=== PATIENT | female | born 1950 | race Caucasian/White ===

== ENCOUNTER 2019-07-22 12:00 | Inpatient (IN) | payer MEDICARE, MEDICAID ==
[~2019-07-22] VITALS: Ht 165.1 cm; Wt 69.6 kg
[~2019-07-22 12:00] MED LIST: ACET325T9 PO; BUSP10TA PO; BUSP5TAB PO; CALC500T13 PO; CARB-174 AU; CARB15DR3 OU; CARB200T PO; CETY454C TP; CITA10TA8 PO; DESM0.2T20 PO; DESM10SP NS; DIVA500T4 PO; DOCU100C28 PO; ERGO500027 PO; EUCA50OI2 TP; FAMO20TA5 PO; FURO-68 PO; KETO120S2 TP; LEVO137T2 PO; LORA0.5T96 PO; LORA10TA68 PO; MAG30ORA2 PO; MAGN2400 PO; METH29OI TP; MINE454O3 TP; NYST1POW2 TP; POTA20TA12 PO; PREN1TAB58 PO; PROM118S9 PO; QUET300T5 PO; QUET50TA5 PO; RISP1TAB43 PO; RISP2TAB33 PO; SERT50TA8 PO; TRAZ-120 PO
--- NOTE | 2019-07-22 12:29 | PHYS DOC ---
Past History Past Medical History: CHF, CVA, Dementia, Depression, Hypertension, Hypothyroid, Seizure, Schizophrenia, Other Additional Past Medical Histor: borderline, MDD Past Surgical History: No Surgical History Smoking: Non-smoker Alcohol Use: None Drug Use: None Adult General Chief Complaint Chief Complaint: MEDICAL CLEARANCE HPI HPI Patient is a 69-year-old female brought in from the assisted care facility where she resides due to change in behavior. She has been screaming, swinging at other residents, exposing her breasts. They have attempted redirection, distraction, one-on-one care, as well as medicines without any significant improvement. History is limited from the patient due to previous CVA as well as unspecified intellectual disability. History was obtained from chart review as well as transportation maintenance operator from the facility where she resides.[] Review of Systems Review of Systems Unable to obtain due to patient's baseline intellectual disability and previous CVA All other systems were reviewed and found to be within normal limits, except as documented in this note. Allergies Allergies Allergies Coded Allergies Type Severity Reaction Last Updated Verified caffeine Allergy Intermediate 04/28/15 Yes clonazepam Allergy Intermediate clonazapam 04/28/15 Yes Physical Exam Physical Exam Constitutional: Well developed, well nourished, no acute distress, non-toxic appearance. [] HENT: Normocephalic, atraumatic, bilateral external ears normal, oropharynx moist, no oral exudates, nose normal. [] Eyes: PERRLA, EOMI, conjunctiva normal, no discharge. [] Neck: Normal range of motion, no tenderness, supple, no stridor. [] Cardiovascular:Heart rate regular rhythm, no murmur [] Lungs & Thorax: Bilateral breath sounds clear to auscultation [] Abdomen: Bowel sounds normal, soft, no tenderness, no masses, no pulsatile masses. [] Skin: Warm, dry, erythematous rash underneath the breasts and in both skin folds of the groin region. No petechiae, no ulcers. [] Back: No tenderness, no CVA tenderness. [] Extremities: No tenderness, no cyanosis, no clubbing, ROM intact, no edema. [] Neurologic: Alert, moves all 4 extremities, right facial weakness. [] Psychologic: Unable to obtain[] Current Patient Data Vital Signs Vital Signs Date Time Temp Pulse Resp B/P (MAP) Pulse Ox O2 Delivery O2 Flow Rate FiO2 07/22/19 12:09 97.8 86 18 95 Room Air EKG EKG Twelve-lead EKG shows a sinus rhythm at 79 bpm, normal axis, QTC [address] elevation. Interpreted by me at 1249[] Radiology/Procedures Radiology/Procedures PROCEDURE: CT HEAD WO CONTRAST CT HEAD WO CONTRAST History: Behavior change, previous CVA Comparison: None. Technique: Noncontrast CT imaging was performed of the head. Exposure: One or more of the following individualized dose reduction techniques were utilized for this examination: 1. Automated exposure control 2. Adjustment of the mA and/or kV according to patient size 3. Use of iterative reconstruction technique. Findings: There is motion degradation. There is a 0.4 cm focus of hypodensity of the left caudate head. There is [id number] generalized supratentorial atrophy, ventricular size proportionate to the sulcal spaces. There is moderate to severe infratentorial atrophy. No acute hyperdense intracranial hemorrhage is identified. There is atherosclerotic calcification of the carotid siphons bilaterally. Visualized paranasal sinuses the mastoid air cells are aerated. Impression: 1. No acute intracranial hemorrhage is identified. There is supratentorial and supratentorial atrophy. There is a focus of low density of the left caudate head likely at least late subacute if not chronic lacunar infarct.[] Course & Med Decision Making Course & Med Decision Making Pertinent Labs and Imaging studies reviewed. (See chart for details) ED course: Patient arrived, was placed in bed, tolerated exam well. She was transported to and from radiology with any complications. After the return of the laboratory and imaging findings, she was determined to be medically stable. She was admitted in improved condition. Medical decision making: Patient with behavioral changes. There is no evidence of an acute mass or bleed on head CT. No evidence of urinary tract infection. No evidence of an acute electrolyte abnormality. There is blood noted in the urine but this was from a catheterized specimen.[] Dragon Disclaimer Dragon Disclaimer This electronic medical record was generated, in whole or in part, using a voice recognition dictation system. Departure Departure: Impression: Primary Impression: Dementia Additional Impression: Medical clearance for psychiatric admission Disposition: ADMITTED INPATIENT Admitting Physician: Other Condition: IMPROVED Referrals: DHIRAJ PATEL DO (PCP) Problem Qualifiers Primary Impression: Dementia Dementia type: unspecified type Dementia behavioral disturbance: with behavioral disturbance Qualified Codes: F03.91 - Unspecified dementia with behavioral disturbance ERIC ACHARYA DO Jul 22, 2019 12:29
--- NOTE | 2019-07-22 12:43 | RAD ---
CT HEAD WO CONTRAST History: Behavior change, previous CVA Comparison: None. Technique: Noncontrast CT imaging was performed of the head. Exposure: One or more of the following individualized dose reduction techniques were utilized for this examination: 1. Automated exposure control 2. Adjustment of the mA and/or kV according to patient size 3. Use of iterative reconstruction technique. Findings: There is motion degradation. There is a 0.4 cm focus of hypodensity of the left caudate head. There is [id number] generalized supratentorial atrophy, ventricular size proportionate to the sulcal spaces. There is moderate to severe infratentorial atrophy. No acute hyperdense intracranial hemorrhage is identified. There is atherosclerotic calcification of the carotid siphons bilaterally. Visualized paranasal sinuses the mastoid air cells are aerated. Impression: 1. No acute intracranial hemorrhage is identified. There is supratentorial and supratentorial atrophy. There is a focus of low density of the left caudate head likely at least late subacute if not chronic lacunar infarct. Electronically signed by: Braeden Villegas MD (07/22/2019 12:40 PM) [id number]
[2019-07-22 12:59] LABS: BILIRUBIN,URINE NEG (NEG); CLARITY,URINE HAZY; COLOR,URINE YELLOW; GLUCOSE,URINE NEG (NEG); NITRITE,URINE POS (NEG); UROBILINOGEN,URINE 0.2 mg/dL (0.2 mg/dL)
[2019-07-22 13:00] LABS: BACTERIA,URINE MANY /HPF (0-FEW); RBC,URINE >40 /HPF (0-2); SQUAMOUS EPITHELIAL CELL,UR FEW /LPF
[2019-07-22 13:04] LABS: BASO % 1 % (0-3); EOS # 0.2 x10^3/uL (0.0-0.7); EOS % 3 % (0-3); HEMATOCRIT 39.5 % (36.0-47.0); LYMPH # 1.6 x10^3/uL (1.0-4.8); LYMPH % 35 % (24-48); MEAN CORPUSCULAR HEMOGLOBIN 30 pg (25-35); MEAN CORPUSCULAR HGB CONC 33 g/dL (31-37); MEAN CORPUSCULAR VOLUME 90 fL (79-100); MONO # 0.7 x10^3/uL (0.0-1.1); MONO % 15 % (0-9); NEUT # 2.1 x10^3uL (1.8-7.7); NEUT % 46 % (31-73); PLATELET COUNT 162 x10^3/uL (140-400); RED BLOOD COUNT 4.42 x10^6/uL (3.50-5.40); RED CELL DISTRIBUTION WIDTH 14.1 % (11.5-14.5); WHITE BLOOD COUNT 4.5 x10^3/uL (4.0-11.0)
[2019-07-22 13:19] LABS: ALBUMIN 3.3 g/dL (3.4-5.0); ALBUMIN/GLOBULIN RATIO 0.7 (1.0-1.7); ALK PHOS 92 U/L (46-116); ALT (SGPT) 11 U/L (14-59); ANION GAP 4 (6-14); AST (SGOT) 16 U/L (15-37); BLOOD UREA NITROGEN 23 mg/dL (7-20); BUN/CREATININE RATIO 29 (6-20); CALCIUM 9.3 mg/dL (8.5-10.1); CARBON DIOXIDE 37 mmol/L (21-32); CHLORIDE 101 mmol/L (98-107); CREATININE 0.8 mg/dL (0.6-1.0); GFR 70.9; GLUCOSE 84 mg/dL (70-99); MAGNESIUM 2.2 mg/dL (1.8-2.4); POTASSIUM 3.9 mmol/L (3.5-5.1); SODIUM 142 mmol/L (136-145); TOTAL BILIRUBIN 0.3 mg/dL (0.2-1.0); TOTAL PROTEIN 8.1 g/dL (6.4-8.2)
[2019-07-22 13:20] LABS: VAL ACID 85 mcg/mL (50-100)
[2019-07-22] MEDS ORDERED: NYST15CR TP (14:01)
[2019-07-22] MEDS ORDERED: FOLI0.8T2 PO (14:01)
[2019-07-22] MEDS ORDERED: POLY17PO5 PO (14:01)
[2019-07-22] MEDS ORDERED: NITR100C62 PO (14:01)
[2019-07-22] MEDS ORDERED: CALC-95 PO (14:01)
[2019-07-22] MEDS ORDERED: IRON1CAP10 PO (14:01)
[2019-07-22] MEDS ORDERED: DIVA125C2 PO (14:01)
[2019-07-22] MEDS ORDERED: BENZ1TAB5 PO (14:01)
[2019-07-22] MEDS ORDERED: ASPI-630 PO (14:01)
[2019-07-22] MEDS ORDERED: MIRA50TA PO (14:01)
[2019-07-22] MEDS ORDERED: GUAI100L12 PO (14:01)
[2019-07-22] MEDS ORDERED: QUET200T4 PO (14:01)
[2019-07-22] MEDS ORDERED: CHOL100016 PO (14:01)
[2019-07-22] MEDS ORDERED: APIX2.5T PO (14:01)
[2019-07-22] MEDS ORDERED: LACT1CAP19 PO (14:01)
[2019-07-22] MEDS ORDERED: LACT10SO26 PO (14:01)
--- NOTE | 2019-07-22 15:00 | NUR ---
Admission Note with Justification for Admission to [facility] Patient admitted to [facility] for protective oversight for emergency stabilization of acute psychiatric crisis. Pt admitted from: Hospital ER Mode of arrival: EMS Accompanied By: EMS Precipitating behaviors that initiated intake and admission: : pt has been screaming, combative towards staff and residents, disrobing and exposing breasts, removing brief in public areas and swinging them around, refusing meds Description of failure of out patient attempts at stabilization in previous setting list behavior and medication trials: redirection, distraction, fluids, snack, 1:1, meds Behaviors and assessment findings upon admission: anxious, restless, confused, disoriented, cooperative with assessment Plan: Admit for protective oversight for adjustment and stabilization of medications, behaviors and mood. Intense treatment regimen including groups, medication adjustments, therapy, consistent regimen for ADL's, self care, and sleep hygiene. Daily monitoring by Inpatient staff, Psychiatry, and Medical Physician.
[2019-07-22] MEDS ORDERED: NYSTATIN TOPICAL POWDER 15GM BOTTLE. TP ONE (15:17)
[2019-07-22] MEDS ORDERED: FAMOTIDINE 20 MG TABLET PO PRN (16:00)
[2019-07-22] MEDS ORDERED: guaiFENesin 300 MG/15 ML LIQUID PO PRN (16:00)
[2019-07-22] MEDS ORDERED: NYSTATIN 100,000 UNIT/GM TOPICAL CREAM 15GM TUBE. TP PRN (16:00)
[2019-07-22] MEDS ORDERED: MAG HYDROX/AL HYDROX/SIMETH 30 ML ORAL.SUSP PO PRN (16:00)
[2019-07-22 16:40] VITALS: BP 115/56
[2019-07-22] MEDS: QUEtiapine 100 MG TABLET. PO SCH (17:17)
[2019-07-22] MEDS: carBAMazepine 200 MG TABLET PO SCH ×2 (17:17→20:44)
--- NOTE | 2019-07-22 20:37 | PDOC ---
Exam Note: Edwin Note: Please also refer to the separate dictated note~for this date of service dictated separately. Discussed the patient with Nursing staff reviewed the chart.~Reviewed interim history and current functioning. Reviewed vital signs,~Labs/ Radiology~and current medications noted below. Continue current treatment with the changes noted in the dictated addendum note Assessment: Vital Signs/I&O: Vital Signs Date Time Temp Pulse Resp B/P (MAP) Pulse Ox O2 Delivery O2 Flow Rate FiO2 07/22/19 16:40 98.1 86 18 115/56 (75) 94 07/22/19 12:09 Room Air Labs: Laboratory Tests Test 07/22/19 12:23 07/22/19 12:48 Urine Collection Type U cath Urine Color Yellow Urine Clarity Hazy Urine pH 7.0 Urine Specific [place] 1.015 Urine Protein Neg (NEG-TRACE) Urine Glucose (UA) Neg mg/dL (NEG) Urine Ketones (Stick) Neg mg/dL (NEG) Urine Blood Large (NEG) Urine Nitrite Pos (NEG) Urine Bilirubin Neg (NEG) Urine Urobilinogen Dipstick 0.2 mg/dL (0.2 mg/dL) Urine Leukocyte Esterase Neg (NEG) Urine RBC >40 /HPF (0-2) Urine WBC 1-4 /HPF (0-4) Urine Squamous Epithelial Cells Few /LPF Urine Transitional Epithelial Cells Occ /LPF Urine Bacteria Many /HPF (0-FEW) White Blood Count 4.5 x10^3/uL (4.0-11.0) Red Blood Count 4.42 x10^6/uL (3.50-5.40) Hemoglobin 13.0 g/dL (12.0-15.5) Hematocrit 39.5 % (36.0-47.0) Mean Corpuscular Volume 90 fL (79-100) Mean Corpuscular Hemoglobin 30 pg (25-35) Mean Corpuscular Hemoglobin Concent 33 g/dL (31-37) Red Cell Distribution Width 14.1 % (11.5-14.5) Platelet Count 162 x10^3/uL (140-400) Neutrophils (%) (Auto) 46 % (31-73) Lymphocytes (%) (Auto) 35 % (24-48) Monocytes (%) (Auto) 15 % (0-9) H Eosinophils (%) (Auto) 3 % (0-3) Basophils (%) (Auto) 1 % (0-3) Neutrophils # (Auto) 2.1 x10^3uL (1.8-7.7) Lymphocytes # (Auto) 1.6 x10^3/uL (1.0-4.8) Monocytes # (Auto) 0.7 x10^3/uL (0.0-1.1) Eosinophils # (Auto) 0.2 x10^3/uL (0.0-0.7) Basophils # (Auto) 0.0 x10^3/uL (0.0-0.2) Prothrombin Time 12.2 SEC (9.4-11.4) H Prothrombin Time INR 1.2 (0.9-1.1) H Activated Partial Thromboplast Time 30 SEC (23-33) Sodium Level 142 mmol/L (136-145) Potassium Level 3.9 mmol/L (3.5-5.1) Chloride Level 101 mmol/L (98-107) Carbon Dioxide Level 37 mmol/L (21-32) H Anion Gap 4 (6-14) L Blood Urea Nitrogen 23 mg/dL (7-20) H Creatinine 0.8 mg/dL (0.6-1.0) Estimated GFR (Cockcroft-Gault) 70.9 BUN/Creatinine Ratio 29 (6-20) H Glucose Level 84 mg/dL (70-99) Calcium Level 9.3 mg/dL (8.5-10.1) Magnesium Level 2.2 mg/dL (1.8-2.4) Total Bilirubin 0.3 mg/dL (0.2-1.0) Aspartate Amino Transferase (AST) 16 U/L (15-37) Alanine Aminotransferase (ALT) 11 U/L (14-59) L Alkaline Phosphatase 92 U/L (46-116) Ammonia 26 mcmol/L (11-34) Total Protein 8.1 g/dL (6.4-8.2) Albumin 3.3 g/dL (3.4-5.0) L Albumin/Globulin Ratio 0.7 (1.0-1.7) L Valproic Acid Level 85 mcg/mL (50-100) Valproic Acid Last Dose Date 07/22/19 Valproic Acid Last Dose Time 0001 Current Medications: Meds: Current Medications Medications (Trade) Dose Ordered Sig/Sukhwinder Route PRN Reason Start Time Stop Time Status Last Admin Dose Admin Carbamazepine (TEGretol) 200 mg QID PO 07/22/19 17:00 07/22/19 17:17 Quetiapine Fumarate (SEROquel) 100 mg DAILYWSUP PO 07/22/19 17:00 07/22/19 17:17 I have reviewed the current psychotropics carefully including drug interactions. Risk benefit ratio favors no change other than as noted in my dictated progress note. Diagnosis: Problems: (1) Anxiety disorder (2) Dementia in Alzheimer's disease with delusions (3) Dementia in Alzheimer's disease with depression (4) Impulse control disorder (5) Intellectual disability (6) Medical clearance for psychiatric admission LOGAN ARANGO MD Jul 22, 2019 20:37
[2019-07-22] MEDS: BENZTROPINE MESYLATE 1 MG TABLET PO SCH (20:43)
[2019-07-22] MEDS: DIVALPROEX 125 MG CAP.SPRINK PO SCH (20:43)
[2019-07-22] MEDS: CALCIUM CARB/VIT D3 500/200 TABLET PO SCH (20:44)
[2019-07-22] MEDS: busPIRone 5 MG TABLET. PO SCH (20:44)
[2019-07-22] MEDS: NYSTATIN TOPICAL POWDER 15GM BOTTLE. TP SCH (20:44)
[2019-07-22] MEDS: APIXABAN 2.5 MG TABLET PO SCH (20:44)
[2019-07-22] MEDS ORDERED: NYSTATIN 100,000 UNIT/GM TOPICAL CREAM 15GM TUBE. TP SCH (21:00)
--- NOTE | 2019-07-22 23:04 | NUR ---
Nursing note: Assumed care of pt in the day room. She was sitting alone with ner hat down over her eyes. She was calm and compliant with meds and assessment. She is alert to name only. No c/o pain, no agitation, hallucinations, or delusions present. She asks for water frequently.
--- NOTE | 2019-07-23 02:17 | EKG ---
[address] [address] Test Date: 2019-07-22 Test Time: 12:41:34 Pat Name: STELLA LAST Department: Room: [address] [place] [address] Gender: F Paint Formulator: : 1950 Requested By: ERIC ACHARYA Order Number: [id number] Reading MD: Matt Fonseca MD Measurements Intervals [place] Rate: 81 P: 41 SC: 186 QRS: 21 QRSD: 84 T: 38 QT: 356 QTc: 419 Interpretive Statements SINUS RHYTHM NON-SPECIFIC ST/T CHANGES Electronically Signed On 09-02-2019 7:45:12 STAFF DEVELOPER by Matt Fonseca MD
[2019-07-23] MEDS: LEVOTHYROXINE 137 MCG TABLET PO SCH (06:29)
[2019-07-23 06:34] VITALS: BP 121/64
[2019-07-23] MEDS: BENZTROPINE MESYLATE 1 MG TABLET PO SCH ×3 (08:34→19:55)
[2019-07-23] MEDS: POLYETHYLENE GLYCOL 3350 17 GM PACKET. PO SCH (08:34)
[2019-07-23] MEDS: ASPIRIN 81 MG TAB.CHEW PO SCH (08:35)
[2019-07-23] MEDS: LACTOBACILLUS RHAMNOSUS GG 1 CAPSULE. PO SCH (08:35)
[2019-07-23] MEDS: busPIRone 5 MG TABLET. PO SCH ×3 (08:35→19:55)
[2019-07-23] MEDS: CALCIUM CARB/VIT D3 500/200 TABLET PO SCH ×3 (08:35→19:56)
[2019-07-23] MEDS: NITROFURANTOIN MONOHYD/M-CRYST 100 MG CAPSULE. PO SCH (08:35)
[2019-07-23] MEDS: POTASSIUM CHLORIDE 10 MEQ TABLET.ER. PO SCH (08:35)
[2019-07-23] MEDS: carBAMazepine 200 MG TABLET PO SCH ×4 (08:35→19:56)
[2019-07-23] MEDS: APIXABAN 2.5 MG TABLET PO SCH ×2 (08:35→19:56)
[2019-07-23] MEDS: DOCUSATE SODIUM 100 MG CAPSULE PO SCH (08:36)
[2019-07-23] MEDS: FOLIC ACID 1 MG TABLET PO SCH (08:36)
[2019-07-23] MEDS: FUROSEMIDE 20 MG TABLET PO SCH (08:36)
[2019-07-23] MEDS: CETIRIZINE HCL 10 MG TABLET PO SCH (08:36)
[2019-07-23] MEDS: MIRABEGRON 25 MG TAB.ER.24H PO SCH (08:37)
[2019-07-23] MEDS: NYSTATIN TOPICAL POWDER 15GM BOTTLE. TP SCH ×2 (08:37→19:56)
[2019-07-23] MEDS: CHOLECALCIFEROL (VITAMIN D3) 1,000 UNIT TABLET PO SCH (08:37)
[2019-07-23] MEDS: DIVALPROEX 125 MG CAP.SPRINK PO SCH ×3 (08:37→19:56)
[2019-07-23] MEDS: LACTULOSE 20 GM/30 ML SOLUTION. PO SCH (08:37)
[2019-07-23] MEDS: QUEtiapine 100 MG TABLET. PO SCH ×3 (08:37→17:13)
[2019-07-23] MEDS: [UNRECOGNIZED DRUG - OTHER] PO SCH (08:43)
[2019-07-23] MEDS: VIT B12 PO SCH (08:43)
[2019-07-23] MEDS: IRON PS CMPLX PO SCH (08:43)
[2019-07-23] MEDS ORDERED: NON FORMULARY ITEM (Mirabegron (Myrbetriq) 50 MG) PO SCH (09:00)
[2019-07-23] MEDS ORDERED: SERTRALINE 50 MG TABLET. PO SCH (09:00)
--- NOTE | 2019-07-23 11:15 | NUR ---
PSYCHOSOCIAL ASSESSMENT ADMISSION DATE: 07/22/19 CONTACT INFORMATION: DPOA/Guardian Contact Name: Clarissa Tapia, Legal Guardian Contact Address: [facility] Contact Phone #: [phone] ETHNIC ORIGIN: REASONS FOR ADMISSION: Agitated, Combative, and Poor impulse control ADDITIONAL ADMISSION COMMENTS: Per pt. intake, pt. was screaming, swinging at staff, disrobing, exposing breasts, removing brief in public areas and swinging them around, combative towards peers, and declining meds. REASON FOR ADMISSION IN PATIENT/FAMILY'S OWN WORDS: Per Hailey, [place] Public Guard Entrance Registrar, pt. was "refusing meds", "screaming", "disrobing", and "taking her clothes off". PATIENT/FAMILY EXPECTATIONS FOR ADMISSION: Hailey reports, "Earlier in the year she had been doing fairly well." Per pt. social work professor, Tammy, "I'm hoping we can get the behaviors under control." LIVING SITUATION: Assisted Care Contact Name: [facility] Contact Address: [place], [place] Contact Phone #: [phone] Contact Fax #: [phone] FAMILY RELATIONS: Marital Status: Single # of Marriages: 0 # of Children: 0 [facility] Family Support: Pt. has no known family. SIGNIFICANT PSYCHIATRIC/MEDICAL HISTORY: Psychiatric/Treatment History: Per pt. intake, pt. has Schizoaffective Disorder, MDD, Borderline Personality Disorder unspecified, Dementia, and an intellectual disability. Hailey was unaware of any pervious psychiatric treatment history. Pt. Gertrudis STALLWORTH, believes pt. had psychiatric treatment "prior to being here" but did not know where. Pertinent Family History: Unknown HISTORICAL DATA: Childhood Environment: Pt. had two brothers and one sister who have all . According to Hailey, pt. lived with her sister prior to living in the nursing facility. Psychological Abuse: None Known Drug Abuse History last 12 months: No PERSONAL HISTORY: Vocational history: None Known service: N Religion background: Per pt. social work professor, "no". Sexual orientation: Pt. social work professor believes pt. is heterosexual. Educational Level: Per pt. social work professor, "I doubt it" when asked if pt. graduated from high school. Past/Present Interests/Hobbies: Pt. social work shared pt. enjoys "drinking coffee" and "hanging out with staff." Pt. also "loves to joke and tease" and giving "hugs." Financial support/resources: Social Security Monthly income: $879 Person handling finances: Clarissa Tapia Do you have a history of legal problems: N Cultural considerations: None SOCIAL RELATIONSHIPS-CURRENT/PAST: Psychiatrist: None PCP: Dr. Perez Counselor/Therapist: Jessica Sujey Brigette Psych - Counseling [employer]: None Support Group: None Epilepsy Physician/Hog Stomach Preparer: Gertrudis Other relationships: None STRENGTHS & WEAKNESSES: Patient's strengths: Stable living arrangement and Approachable Patient's weaknesses: No family support, Impulsive, Poor social skills, and Physically Aggressive PRELIMINARY PLAN OF TREATMENT: Preliminary plan: Medication Stabilization, Monitor Med Effects, Control abnormal behavior, Decrease Outbursts, and Decrease Aggression DISCHARGE PLANNING: Discharge planning/disposition: Current Living Arrangement ADDITIONAL INFORMATION: Pt. was unable to supply information for this assessment. Clarissa Tapia, pt. legal guardian and Public Guard Entrance Registrar, was contacted for psychosocial information. Hailey, [place] Public Guard Entrance Registrar, was able to supply some of the information requested. Hailey shared pt. has been in a nursing facility since 2013 from [facility] to [facility] and back to [facility]. Pt. was in [facility] in May of last year for a UTI and MRI for a "possible stroke." Pt. social work professor, Gertrudis, was also contacted for information. She shared pt. behaviors have been a "slow progression" over the past "two months".
--- NOTE | 2019-07-23 12:01 | HP ---
ADMIT DATE: 07/22/2019 This late entry 07/22 covers elements not covered in my initial note. I met with the patient evening of 07/22. Previously discussed with Lavonne Hansen, marketing production coordinator and nursing staff. IDENTIFYING DATA: The patient is a 69-year-old female referred to us from [facility] in [place], [place] by her primary care physician, Dr. Aponte, on account of increasing agitation, screaming, being combative towards staff and residents, disrobing and exposing breasts. This is within the context of her diagnosis of schizoaffective disorder, bipolar type and intellectual disability. She was removing her brief in public places, swinging it around, combative towards peers had to be on one-on-one status, nonredirectable with redirection, distraction and changes in her medications with a psychiatrist through the [facility]. She had failed outpatient psychiatric interventions resulting in this referral. CHIEF COMPLAINT: "No, I don't do that." The patient is quite disorganized, confused with rapid speech, paranoid, psychotic. Intellectual disability further compromises her presentation. HISTORY OF PRESENT ILLNESS: The patient has a history of schizoaffective disorder, bipolar type. She has been residing at the above facility for some time, but recently having an acute exacerbation of her schizoaffective disorder, bipolar type. The patient has had sleep and appetite changes, marked psychotic symptoms, agitation, aggression, disruptive behaviors as noted above. No active suicidal or homicidal ideation. PAST PSYCHIATRIC HISTORY: As above. PAST MEDICAL HISTORY: Intellectual disability heart failure, metabolic encephalopathy by history, GERD, hypothyroidism, osteoporosis, status post CVA, seizure disorder, dysphagia impulse control disorder, chronic constipation, history of C. diff colitis. DIET: Pureed, nectar thick. ACCU-CHEKS: Not applicable. CODE STATUS: Full code. ALLERGIES: KLONOPIN, CAFFEINE, CHOCOLATE. AMBULATES: Wheelchair x 1 assist with transfers. CURRENT PSYCHOTROPICS: BuSpar 7.5 mg t.i.d., Tegretol 200 mg q.i.d., Depakote 500 t.i.d., Seroquel 100 mg a.m. and 200 b.i.d., Zoloft 50 mg a day. FAMILY HISTORY: Noncontributory. SOCIAL HISTORY: No alcohol, drug abuse, physical, sexual or elder abuse history is noted. She is not known to be a perpetrator. REACTION TO HOSPITALIZATION: The patient oblivious of this. ASSETS: Supportive living at the facility. MENTAL STATUS EXAMINATION: The patient was seen individually evening of 07/22. The patient is oriented to herself, seated in a wheelchair, difficult to understand her speech. Insight, judgment, recent and remote memory, attention, concentration, fund of knowledge poor, consistent with her diagnosis. She appears quite psychotic, paranoid, labile in her mood. LABORATORY DATA: Reviewed. IMPRESSION: Schizoaffective disorder, bipolar type, mixed with psychotic features; intellectual disability; major neurocognitive disorder, Alzheimer, vascular with delusion, behavioral disturbance; anxiety disorder, unspecified; impulse control disorder, unspecified. Rest as above. PLAN: Admit to Geropsychiatry Unit at [facility]. I will see the patient daily individually from a psychiatric standpoint. Medical followup with Dr. Mcbride. Continue current psychotropics. Check lab levels for the Tegretol and Depakote. Adjust to reach therapeutic level. Consider changing Seroquel to an alternate antipsychotic. We will make all these decisions post baseline assessment. LOGAN ARANGO MD DR: DAIN/lois JOB#: [id number] / [id number]
[2019-07-23 13:56] LABS: CARBAM 10.9 mcg/mL (4.0-12.0)
[2019-07-23 13:57] LABS: THYROID STIM HORMONE (TSH) 0.161 uIU/mL (0.358-3.740)
--- NOTE | 2019-07-23 14:10 | NUR ---
Pt has been cooperative and compliant with crushed medications. Pt occasionally hollers out. A/O to self.
[2019-07-23 15:58] VITALS: BP 113/73
--- NOTE | 2019-07-23 18:05 | RAD ---
CHEST AP ONLY Clinical Indication: Productive cough Comparison: 04/26/2015 Portable Chest X-ray Exam. Findings: Upright frontal view of the chest was obtained. The cardiomediastinal silhouette is normal. Lungs are clear. Left basilar calcified granuloma is present. There is no pneumothorax. No pleural effusion is appreciated. No acute bone abnormality. IMPRESSION: No acute cardiopulmonary process. Electronically signed by: Hosea Garrison MD (07/23/2019 6:03 PM) [facility]
--- NOTE | 2019-07-23 18:27 | NUR ---
Pt has had a wet, productive cough throughout the day. CXR ordered. Will continue to monitor.
--- NOTE | 2019-07-23 18:46 | CONS ---
DATE OF CONSULTATION: REASON FOR CONSULTATION: Medical management. HISTORY OF PRESENT ILLNESS: The patient is a 69-year-old female patient, a resident at [facility] [place] [facility], who was admitted on account of being combative towards staff and residents, screaming, disrobing and exposing breasts and moving free in the public areas and swinging them around, refusing medication, all this in a background of schizoaffective disorder, major depressive disorder and personality disorder. PAST MEDICAL HISTORY: Significant for hypothyroidism, gastroesophageal reflux disease, cerebrovascular accident, convulsion, dysphagia, chronic constipation as well as C. diff colitis together with metabolic encephalopathy and heart failure. PAST PSYCHIATRIC HISTORY: Significant for schizoaffective disorder, major depressive disorder, borderline personality, unspecified intellectual disability and dementia. PAST SURGICAL HISTORY: Unremarkable. ALLERGIES: She is allergic to KLONOPIN, CAFFEINE AND CHOCOLATE. FAMILY HISTORY: Noncontributory. SOCIAL HISTORY: She is currently a resident at [facility]. She does not smoke, drink alcohol, or use any recreational drugs. MEDICATIONS: She is currently on following medications: She is on loratadine 10 mg once a day. She is on nitrofurantoin for Macrobid 100 mg once a day, Ferrex 150 mg once a day, apixaban 2.5 mg twice a day, aspirin 81 mg once a day, Tylenol 650 mg every 4 hours, carbamazepine 200 mg 4 times a day, divalproex sodium 500 mg 3 times a day, sertraline 50 mg daily, quetiapine fumarate for Seroquel 100 mg once a day, Seroquel 200 mg twice a day, buspirone 7.5 mg 3 times a day, benztropine mesylate 1 mg 3 times a day, lactulose 22.5 mL daily, calcium carbonate with vitamin D3 1 tablet p.o. t.i.d., potassium chloride 20 mEq once a day, furosemide 40 mg once a day, guaifenesin 10 mL p.o. every 6 hours as needed, Mylanta 30 mL after meals, Colace 100 mg once a day, MiraLax 17 grams daily, famotidine 20 mg daily, lactobacillus rhamnosus 1 capsule p.o. daily, levothyroxine 137 mcg once a day, ketoconazole shampoo 3 times per week, nystatin cream apply topically twice a day, Myrbetriq 50 mg once a day, folic acid 0.8 mg once a day, vitamin D 1000 International Unit once a day, ergocalciferol vitamin D2 50,000 International Unit once a week. REVIEW OF SYSTEMS: Unobtainable. The patient was very lethargic when I saw her, difficult to understand. PHYSICAL EXAMINATION: GENERAL: When I examined her, she was sitting comfortably in her wheelchair, in no apparent respiratory distress, pale. No jaundice, cyanosis or thyromegaly. No jugular venous distention. No limb edema. VITAL SIGNS: Her heart rate was 78, blood pressure 121/64, temperature was 97.6, respiratory rate 20, and oxygen saturation was 93%. HEAD, EYES, EARS, NOSE AND THROAT: Normocephalic, atraumatic. NECK: Supple. HEART: Showed normal first and second heart sounds. No gallop or murmur. CHEST: Clear to auscultation. No crepitation or rhonchi. ABDOMEN: Distended, soft, nontender. NEUROLOGIC: She was somewhat lethargic, but arousable. She is very dysarthric and difficult to understand. However, all her cranial nerves seem to be grossly intact. She moves upper extremities to much lesser extent than lower extremities. She is mostly bedbound, chair bound. LABORATORY DATA: Showed a white cell count of 4500, hemoglobin 13, hematocrit 39, MCV 90 and platelet count 162,000. Her chemistry showed a serum sodium 142, potassium 3.9, chloride 101, bicarbonate 37, anion gap of 4, BUN 23, creatinine 0.8, estimated GFR was 71 mL per minute. Her glucose was 84, calcium 9.3, magnesium was 2.2. Her serum iron was 92, TIBC was 347. Iron saturation was 27%. Total bilirubin, AST, ALT, alkaline phosphatase were normal. Her ammonia was only 26. Total protein was 8.1, albumin 3.3. Serum triglycerides were 75, total cholesterol was 200, LDL was 124, VLDL was 15, HDL was 61 and the ratio was 3. Her TSH was 0.161 which is almost undetectable. Her prothrombin time, INR and aPTT were normal. Urinalysis showed the urine was yellow, hazy with a pH of 7, specific gravity of 1.015. The urine was negative for protein, glucose, ketones. There was large amount of blood, positive for nitrites. The urine was negative for leukocyte esterase. There was more than 40 wbc's, 1-4 wbc's, very few bacteria. Her toxic screen showed that her valproic acid was 85 mcg/mL, which is well within therapeutic range and carbamazepine was 10.9 mcg/mL, which is well within therapeutic range of 4-12. IMPRESSION: In summary, this is a 69-year-old female patient, who was a resident at [facility] [place] [facility] and was admitted on account of being combative towards staff and resident, screaming, disrobing, exposing breasts and moving free in the public areas and swinging them around, refusing medication, all this in a background of schizoaffective disorder, major depressive disorder and personality disorder. Medically, the patient has numerous medical problems including heart failure, metabolic encephalopathy, gastroesophageal reflux disease, hypothyroidism, osteoporosis, seizure disorder, dysphagia, constipation together with history of Clostridium difficile colitis. She seemed to be generally stable medically, except her TSH is almost undetectable. My plan is to check her T3, T4, free T4, and if they are high, we will probably have to cut down her levothyroxine. Thank you, Dr. Cameron for allowing me to participate in the care of this patient. FAIZA PACHECO MD DR: BRIGIDA/lois JOB#: [id number] / [id number]
[2019-07-23 19:07] LABS: THYROXINE 5.2 ug/dL (4.5-12.0)
--- NOTE | 2019-07-23 20:51 | PDOC ---
Exam Note: Edwin Note: Please also refer to the separate dictated note~for this date of service dictated separately.~Patient seen individually. Discussed the patient with Nursing staff reviewed the chart.~Reviewed interim history and current functioning. Reviewed vital signs,~Labs/ Radiology~and current medications noted below. Continue current treatment with the changes noted in the dictated addendum note Assessment: Vital Signs/I&O: Vital Signs Date Time Temp Pulse Resp B/P (MAP) Pulse Ox O2 Delivery O2 Flow Rate FiO2 07/23/19 15:58 97.2 80 16 113/73 (86) 98 07/22/19 12:09 Room Air I & O 07/22/19 07/22/19 07/23/19 15:00 23:00 07:00 Intake Total 480 ml 200 ml Balance 480 ml 200 ml Current Medications: Meds: Current Medications Medications (Trade) Dose Ordered Sig/Sukhwinder Route PRN Reason Start Time Stop Time Status Last Admin Dose Admin Apixaban (Eliquis) 2.5 mg BID PO 07/22/19 21:00 07/23/19 19:56 Aspirin (Children'S Aspirin) 81 mg DAILY PO 07/23/19 09:00 07/23/19 08:35 Calcium/Vitamin D (Oscal D 500mg/ 200uts) 1 tab TID PO 07/22/19 21:00 07/23/19 19:56 Docusate Sodium (Colace) 200 mg DAILY PO 07/23/19 09:00 07/23/19 08:36 Furosemide (Lasix) 30 mg DAILY PO 07/23/19 09:00 07/23/19 08:36 Lactobacillus Rhamnosus (Culturelle) 1 cap DAILY PO 07/23/19 09:00 07/23/19 08:35 Levothyroxine Sodium (Synthroid) 137 mcg DAILY06 PO 07/23/19 06:00 07/23/19 06:29 Nitrofurantoin Macrocrystals (Macrobid) 100 mg DAILY PO 07/23/19 09:00 07/23/19 08:35 Polyethylene Glycol (miraLAX) 17 gm DAILY PO 07/23/19 09:00 07/23/19 08:34 Potassium Chloride (Klor-Con) 10 meq DAILY PO 07/23/19 09:00 07/23/19 08:35 Vitamin D (Vitamin D3) 1,000 unit DAILY PO 07/23/19 09:00 07/23/19 08:37 Folic Acid (Folic Acid) 1 mg DAILY PO 07/23/19 09:00 07/23/19 08:36 Lactulose (Lactulose) 15 gm DAILY PO 07/23/19 09:00 07/23/19 08:37 Cetirizine HCl (ZyrTEC) 10 mg DAILY PO 07/23/19 09:00 07/23/19 08:36 Benztropine Mesylate (Cogentin) 1 mg TID PO 07/22/19 21:00 07/23/19 19:55 Buspirone HCl (Buspar) 7.5 mg TID PO 07/22/19 21:00 07/23/19 19:55 Divalproex Sodium (Depakote Sprinkles) 500 mg TID PO 07/22/19 21:00 07/23/19 19:56 Sertraline HCl (Zoloft) 50 mg DAILY PO 07/23/19 09:00 07/23/19 17:04 DC 07/23/19 08:35 Quetiapine Fumarate (SEROquel) 200 mg BID@0800,1200 PO 07/23/19 08:00 07/23/19 13:49 Mirabegron (Myrbetriq) 50 mg DAILY PO 07/23/19 09:00 07/23/19 08:37 Nystatin (Nystop) 1 tho BID TP 07/22/19 21:00 07/23/19 19:56 I have reviewed the current psychotropics carefully including drug interactions. Risk benefit ratio favors no change other than as noted in my dictated progress note. Diagnosis: Problems: (1) Anxiety disorder (2) Dementia in Alzheimer's disease with delusions (3) Dementia in Alzheimer's disease with depression (4) Impulse control disorder (5) Intellectual disability (6) Dementia, vascular, with delusions (7) Dementia, vascular, with depression (8) Major neurocognitive disorder, due to vascular disease, with behavioral disturbance, mild (9) Schizoaffective disorder, bipolar type LOGAN ARANGO MD Jul 23, 2019 20:51
[2019-07-23 23:07] LABS: HEMOGLOBIN A1C 5.1 % (4.8-5.6)
[2019-07-24] MEDS ORDERED: KETOCONAZOLE 2% SHAMPOO 120ML BOTTLE. TP SCH
[2019-07-24 05:13] VITALS: BP 116/65
[2019-07-24] MEDS: LEVOTHYROXINE 137 MCG TABLET PO SCH (05:37)
[2019-07-24] MEDS: POLYETHYLENE GLYCOL 3350 17 GM PACKET. PO SCH (08:43)
[2019-07-24] MEDS: BENZTROPINE MESYLATE 1 MG TABLET PO SCH ×3 (08:43→20:31)
[2019-07-24] MEDS: NYSTATIN TOPICAL POWDER 15GM BOTTLE. TP SCH ×2 (08:43→20:31)
[2019-07-24] MEDS: LACTULOSE 20 GM/30 ML SOLUTION. PO SCH (08:43)
[2019-07-24] MEDS: MIRABEGRON 25 MG TAB.ER.24H PO SCH (08:44)
[2019-07-24] MEDS: FUROSEMIDE 20 MG TABLET PO SCH (08:44)
[2019-07-24] MEDS: DIVALPROEX 125 MG CAP.SPRINK PO SCH ×3 (08:44→20:31)
[2019-07-24] MEDS: busPIRone 5 MG TABLET. PO SCH ×3 (08:44→20:31)
[2019-07-24] MEDS: QUEtiapine 100 MG TABLET. PO SCH ×3 (08:44→17:12)
[2019-07-24] MEDS: carBAMazepine 200 MG TABLET PO SCH ×4 (08:44→20:31)
[2019-07-24] MEDS: APIXABAN 2.5 MG TABLET PO SCH ×2 (08:45→20:31)
[2019-07-24] MEDS: LACTOBACILLUS RHAMNOSUS GG 1 CAPSULE. PO SCH (08:45)
[2019-07-24] MEDS: ASPIRIN 81 MG TAB.CHEW PO SCH (08:45)
[2019-07-24] MEDS: POTASSIUM CHLORIDE 10 MEQ TABLET.ER. PO SCH (08:45)
[2019-07-24] MEDS: FOLIC ACID 1 MG TABLET PO SCH (08:45)
[2019-07-24] MEDS: NITROFURANTOIN MONOHYD/M-CRYST 100 MG CAPSULE. PO SCH (08:45)
[2019-07-24] MEDS: CHOLECALCIFEROL (VITAMIN D3) 1,000 UNIT TABLET PO SCH (08:45)
[2019-07-24] MEDS: DOCUSATE SODIUM 100 MG CAPSULE PO SCH (08:45)
[2019-07-24] MEDS: CETIRIZINE HCL 10 MG TABLET PO SCH (08:45)
[2019-07-24] MEDS: CALCIUM CARB/VIT D3 500/200 TABLET PO SCH ×3 (08:45→20:31)
[2019-07-24] MEDS: VIT B12 PO SCH (08:56)
[2019-07-24] MEDS: IRON PS CMPLX PO SCH (08:56)
[2019-07-24] MEDS: [UNRECOGNIZED DRUG - OTHER] PO SCH (08:56)
--- NOTE | 2019-07-24 09:40 | NUR ---
Nursing Note Assumed care of pt in the dining room. Patient was calm and compliant with medications and assessment. Patient is alert to name only. No c/o pain, no agitation, hallucinations, or delusions present.
[2019-07-24 15:55] VITALS: BP 104/51
--- NOTE | 2019-07-24 20:40 | PDOC ---
Exam Note: Edwin Note: Please also refer to the separate dictated note~for this date of service dictated separately.~Patient seen individually. Discussed the patient with Nursing staff reviewed the chart.~Reviewed interim history and current functioning. Reviewed vital signs,~Labs/ Radiology~and current medications noted below. Continue current treatment with the changes noted in the dictated addendum note Assessment: Vital Signs/I&O: Vital Signs Date Time Temp Pulse Resp B/P (MAP) Pulse Ox O2 Delivery O2 Flow Rate FiO2 07/24/19 15:55 97.9 80 18 104/51 (68) 93 07/24/19 05:13 Room Air I & O 07/23/19 07/23/19 07/24/19 15:00 23:00 07:00 Intake Total 600 ml 840 ml Balance 600 ml 840 ml Current Medications: I have reviewed the current psychotropics carefully including drug interactions. Risk benefit ratio favors no change other than as noted in my dictated progress note. Diagnosis: Problems: (1) Schizoaffective disorder, bipolar type (2) Dementia, vascular, with depression (3) Dementia, vascular, with delusions (4) Major neurocognitive disorder, due to vascular disease, with behavioral disturbance, mild (5) Anxiety disorder (6) Dementia in Alzheimer's disease with delusions (7) Dementia in Alzheimer's disease with depression (8) Impulse control disorder (9) Intellectual disability LOGAN ARANGO MD Jul 24, 2019 20:40
--- NOTE | 2019-07-24 22:32 | NUR ---
Nursing note: Assumed care of pt in the day room. She was dozing in her chair but was compliant and pleasant. No agitation noted, no behaviors. Med compliant in food.
[2019-07-25] MEDS: LEVOTHYROXINE 137 MCG TABLET PO SCH (05:36)
[2019-07-25 06:27] VITALS: BP 105/64
[2019-07-25] MEDS: POLYETHYLENE GLYCOL 3350 17 GM PACKET. PO SCH (08:49)
[2019-07-25] MEDS: LACTULOSE 20 GM/30 ML SOLUTION. PO SCH (08:50)
[2019-07-25] MEDS: MIRABEGRON 25 MG TAB.ER.24H PO SCH (08:50)
[2019-07-25] MEDS: QUEtiapine 100 MG TABLET. PO SCH ×3 (08:52→17:42)
[2019-07-25] MEDS: busPIRone 5 MG TABLET. PO SCH ×3 (08:53→20:16)
[2019-07-25] MEDS: LACTOBACILLUS RHAMNOSUS GG 1 CAPSULE. PO SCH (08:55)
[2019-07-25] MEDS: ASPIRIN 81 MG TAB.CHEW PO SCH (08:55)
[2019-07-25] MEDS: APIXABAN 2.5 MG TABLET PO SCH ×2 (08:55→20:16)
[2019-07-25] MEDS: BENZTROPINE MESYLATE 1 MG TABLET PO SCH ×3 (08:55→20:16)
[2019-07-25] MEDS: POTASSIUM CHLORIDE 10 MEQ TABLET.ER. PO SCH (08:56)
[2019-07-25] MEDS: FUROSEMIDE 20 MG TABLET PO SCH (08:56)
[2019-07-25] MEDS: NITROFURANTOIN MONOHYD/M-CRYST 100 MG CAPSULE. PO SCH (08:57)
[2019-07-25] MEDS: DIVALPROEX 125 MG CAP.SPRINK PO SCH ×3 (08:57→20:17)
[2019-07-25] MEDS: carBAMazepine 200 MG TABLET PO SCH ×4 (08:57→20:15)
[2019-07-25] MEDS: FOLIC ACID 1 MG TABLET PO SCH (08:57)
[2019-07-25] MEDS: DOCUSATE SODIUM 100 MG CAPSULE PO SCH (08:57)
[2019-07-25] MEDS: CHOLECALCIFEROL (VITAMIN D3) 1,000 UNIT TABLET PO SCH (08:57)
[2019-07-25] MEDS: CETIRIZINE HCL 10 MG TABLET PO SCH (08:58)
[2019-07-25] MEDS: CALCIUM CARB/VIT D3 500/200 TABLET PO SCH ×3 (08:58→20:16)
[2019-07-25] MEDS: VIT B12 PO SCH (09:00)
[2019-07-25] MEDS: IRON PS CMPLX PO SCH (09:00)
[2019-07-25] MEDS: [UNRECOGNIZED DRUG - OTHER] PO SCH (09:00)
[2019-07-25] MEDS: NYSTATIN TOPICAL POWDER 15GM BOTTLE. TP SCH ×2 (09:00→20:15)
--- NOTE | 2019-07-25 11:44 | NUR ---
Nystatin powder was applied in shower, unable to scan at that time. The iron, unverified medication was not available on the unit. Pt. was A & O after breakfast, then retired to bed for a nap.
[2019-07-25] MEDS: ACETAMINOPHEN 325 MG TABLET PO PRN (14:47)
--- NOTE | 2019-07-25 15:31 | PN ---
DATE: 07/23/2019 PSYCHIATRIC PROGRESS NOTE This late entry 07/23/2019 covers elements not covered in my initial note. SUBJECTIVE: I met with the patient evening of 07/23/2019. Per DOMINIK Tello, the patient slept 6 hours previous night. She takes her medications crushed, alert, oriented to herself only. She has been somewhat drowsy, hollering out at times, but not derogatory, mostly "hey honey." REVIEW OF SYSTEMS: Ambulation impaired with wheelchair. No CV, , pulmonary, eye system symptoms on review. MENTAL STATUS EXAM: Oriented to herself. Insight, judgment, recent and remote memory, attention, concentration, fund of knowledge poor, consistent with her diagnoses. IMPRESSION: Schizoaffective disorder, bipolar type, mixed with psychotic features; major neurocognitive disorder, intellectual disability, borderline personality disorder. Urine C and S is awaited. CT head is noncontributory. Given some of her manic symptoms, we will stop the Zoloft. Continue Depakote and Tegretol, levels are therapeutic at 85 and 10.9 respectively. Maintain Seroquel. Adjust further as clinically indicated. MAN Og ARANGO MD DR: DAIN/lois JOB#: [id number] / [id number]
--- NOTE | 2019-07-25 16:05 | NUR ---
ACTIVITY THERAPY ASSESSMENT Completed based on observation, notes, and interview. Pt. was unable to answer assessment questions and struggled to communicate needs. At times, RESIN REMOVER believes Pt. would nod her head to answer "yes;" however, it was unclear if that was really what Pt. was trying to do. While Pt. was restless and readjusting often in her chair, RESIN REMOVER believes she heard Pt. say "too big" as she was tugging at her shirt and "pain" when motioning to her back. Pt. continued to tug at her shirt, pulling it up to expose her stomach and breast at one point. She made brief eye contact as her head constantly moved around. Pt. followed verbal prompts from another staff who walked by, gave Pt. hand gis physical scientist and cued her to rub her hands together. Per social workers notes, Pt. enjoys "drinking coffee, hanging out with staff, joke and tease, give hugs." Pt. has not participated in any groups since admission. Initial goal aimed to increase stimulation and attention span: Pt. will participate in at least five individual Activity Therapy sessions before discharge.
[2019-07-25 16:06] VITALS: BP 120/76
--- NOTE | 2019-07-25 19:27 | NUR ---
Has been compliant with all medications, awake and wheeling self around unit most of the day in her w/c. Showered in a.m. and eats meals well.
--- NOTE | 2019-07-25 20:30 | PDOC ---
Exam Note: Edwin Note: Please also refer to the separate dictated note~for this date of service dictated separately.~Patient seen individually. Discussed the patient with Nursing staff reviewed the chart.~Reviewed interim history and current functioning. Reviewed vital signs,~Labs/ Radiology~and current medications noted below. Continue current treatment with the changes noted in the dictated addendum note Assessment: Vital Signs/I&O: Vital Signs Date Time Temp Pulse Resp B/P (MAP) Pulse Ox O2 Delivery O2 Flow Rate FiO2 07/25/19 16:06 97.6 81 18 120/76 (91) 96 07/24/19 05:13 Room Air I & O 07/24/19 07/24/19 07/25/19 14:59 22:59 06:59 Intake Total 480 ml 420 ml Balance 480 ml 420 ml Current Medications: I have reviewed the current psychotropics carefully including drug interactions. Risk benefit ratio favors no change other than as noted in my dictated progress note. Diagnosis: Problems: (1) Schizoaffective disorder, bipolar type (2) Dementia, vascular, with depression (3) Dementia, vascular, with delusions (4) Major neurocognitive disorder, due to vascular disease, with behavioral disturbance, mild (5) Anxiety disorder (6) Dementia in Alzheimer's disease with delusions (7) Dementia in Alzheimer's disease with depression (8) Impulse control disorder (9) Intellectual disability LOGAN ARANGO MD Jul 25, 2019 20:30
--- NOTE | 2019-07-25 23:39 | PN ---
DATE: 07/24/2019 PSYCHIATRIC PROGRESS NOTE This late entry of 07/24/2019 covers elements not covered in my initial note. SUBJECTIVE: I met with the patient in the evening. The patient slept 6 hours previous night. The patient remains confused, was touching the briefs and pants and believing that was her baby. She is compliant with her medication, propels herself in the wheelchair on the unit. REVIEW OF SYSTEMS: No CV, , PULMONARY, EYE, ENT system symptoms on review. Gait unsteady, in wheelchair. Reliability poor. MENTAL STATUS EXAM: Oriented to herself. Insight, judgment, recent and remote memory, attention, concentration, fund of knowledge poor, consistent with her diagnosis mentioned in my initial note. PLAN: No change from initial note. The patient presumably has a UTI. We will defer to Dr. Mcbride. MAN Og ARANGO MD DR: DAIN/lois JOB#: [id number] / [id number]
--- NOTE | 2019-07-25 23:40 | NUR ---
Patient up in wheelchair ambulating in day room. Compliant with medications crushed in pudding accompanied by nectar thick water. Patient compliant with medications, cooperative with toileting and bed time cares. Patient has yeasty reddened area under left breast. Nystatin powder applied. UA resulted >100,000 Normal Violeta, no treatment necessary.
[2019-07-26] MEDS: LEVOTHYROXINE 137 MCG TABLET PO SCH (05:36)
[2019-07-26 05:44] VITALS: BP 104/54
[2019-07-26] MEDS: NYSTATIN TOPICAL POWDER 15GM BOTTLE. TP SCH ×2 (08:32→20:11)
[2019-07-26] MEDS: LACTULOSE 20 GM/30 ML SOLUTION. PO SCH (08:32)
[2019-07-26] MEDS: POLYETHYLENE GLYCOL 3350 17 GM PACKET. PO SCH (08:32)
[2019-07-26] MEDS: MIRABEGRON 25 MG TAB.ER.24H PO SCH (08:33)
[2019-07-26] MEDS: POTASSIUM CHLORIDE 10 MEQ TABLET.ER. PO SCH (08:33)
[2019-07-26] MEDS: carBAMazepine 200 MG TABLET PO SCH ×4 (08:33→20:10)
[2019-07-26] MEDS: busPIRone 5 MG TABLET. PO SCH ×3 (08:33→20:10)
[2019-07-26] MEDS: CHOLECALCIFEROL (VITAMIN D3) 1,000 UNIT TABLET PO SCH (08:33)
[2019-07-26] MEDS: VIT B12 PO SCH (08:34)
[2019-07-26] MEDS: APIXABAN 2.5 MG TABLET PO SCH ×2 (08:34→20:10)
[2019-07-26] MEDS: BENZTROPINE MESYLATE 1 MG TABLET PO SCH ×3 (08:34→20:10)
[2019-07-26] MEDS: IRON PS CMPLX PO SCH (08:34)
[2019-07-26] MEDS: CETIRIZINE HCL 10 MG TABLET PO SCH (08:34)
[2019-07-26] MEDS: FOLIC ACID 1 MG TABLET PO SCH (08:34)
[2019-07-26] MEDS: CALCIUM CARB/VIT D3 500/200 TABLET PO SCH ×3 (08:34→20:10)
[2019-07-26] MEDS: DOCUSATE SODIUM 100 MG CAPSULE PO SCH (08:34)
[2019-07-26] MEDS: NITROFURANTOIN MONOHYD/M-CRYST 100 MG CAPSULE. PO SCH (08:34)
[2019-07-26] MEDS: ASPIRIN 81 MG TAB.CHEW PO SCH (08:34)
[2019-07-26] MEDS: DIVALPROEX 125 MG CAP.SPRINK PO SCH ×3 (08:34→20:10)
[2019-07-26] MEDS: [UNRECOGNIZED DRUG - OTHER] PO SCH (08:34)
[2019-07-26] MEDS: LACTOBACILLUS RHAMNOSUS GG 1 CAPSULE. PO SCH (08:34)
[2019-07-26] MEDS: QUEtiapine 100 MG TABLET. PO SCH ×3 (08:34→17:23)
[2019-07-26] MEDS: FUROSEMIDE 20 MG TABLET PO SCH (08:37)
--- NOTE | 2019-07-26 10:46 | NUR ---
Pt calm and compliant with crushed medications. Pt pleasant and interactive with staff. Nystatin powder administered to groin area and bilateral breasts. Pt drowsy and currently sleeping in dayroom.
[2019-07-26 15:35] VITALS: BP 113/56
--- NOTE | 2019-07-26 20:05 | PDOC ---
Exam Note: Edwin Note: Please also refer to the separate dictated note~for this date of service dictated separately.~Patient seen individually. Discussed the patient with Nursing staff reviewed the chart.~Reviewed interim history and current functioning. Reviewed vital signs,~Labs/ Radiology~and current medications noted below. Continue current treatment with the changes noted in the dictated addendum note Assessment: Vital Signs/I&O: Vital Signs Date Time Temp Pulse Resp B/P (MAP) Pulse Ox O2 Delivery O2 Flow Rate FiO2 07/26/19 15:35 97.8 79 20 113/56 (75) 100 07/26/19 05:44 Room Air I & O 07/25/19 07/25/19 07/26/19 14:59 22:59 06:59 Intake Total 960 ml 480 ml 120 ml Balance 960 ml 480 ml 120 ml Current Medications: I have reviewed the current psychotropics carefully including drug interactions. Risk benefit ratio favors no change other than as noted in my dictated progress note. Diagnosis: Problems: (1) Schizoaffective disorder, bipolar type (2) Dementia, vascular, with depression (3) Dementia, vascular, with delusions (4) Major neurocognitive disorder, due to vascular disease, with behavioral disturbance, mild (5) Anxiety disorder (6) Dementia in Alzheimer's disease with delusions (7) Dementia in Alzheimer's disease with depression (8) Impulse control disorder (9) Intellectual disability (10) Dementia (11) Medical clearance for psychiatric admission LOGAN ARANGO MD Jul 26, 2019 20:05
--- NOTE | 2019-07-27 00:49 | PN ---
DATE: 07/25/2019 PSYCHIATRIC PROGRESS NOTE. This late entry of 07/25/2019 covers the elements not covered in my initial note. SUBJECTIVE: I met with the patient in the evening. Per nursing report, the patient is compliant with her medications. UA has reflex to culture, result is awaited. Chest x-ray was negative. She remains somewhat disorganized, up and down in a wheelchair. REVIEW OF SYSTEMS: No CV, , pulmonary, eye system symptoms on review. Reliability poor. Gait unsteady. MENTAL STATUS EXAM: Oriented to herself. Insight, judgment, recent and remote memory, attention, concentration, fund of knowledge poor, consistent with her diagnosis mentioned in my initial note. PLAN: No change from initial note. Valproic acid level, Tegretol level are therapeutic. Maintain BuSpar, Seroquel at current dosage. Treat the UTI once culture returns, then decide on further psychotropic adjustments. LOGAN ARANGO MD DR: DAIN/lois JOB#: [id number] / [id number]
[2019-07-27] MEDS: LEVOTHYROXINE 137 MCG TABLET PO SCH (05:38)
[2019-07-27 06:18] VITALS: BP 120/59
[2019-07-27 07:16] LABS: BASO % 0 % (0-3); EOS # 0.2 x10^3/uL (0.0-0.7); EOS % 3 % (0-3); HEMATOCRIT 35.4 % (36.0-47.0); HEMOGLOBIN 11.3 g/dL (12.0-15.5); LYMPH # 1.2 x10^3/uL (1.0-4.8); LYMPH % 15 % (24-48); MEAN CORPUSCULAR HEMOGLOBIN 29 pg (25-35); MEAN CORPUSCULAR HGB CONC 32 g/dL (31-37); MEAN CORPUSCULAR VOLUME 90 fL (79-100); MONO # 1.2 x10^3/uL (0.0-1.1); MONO % 16 % (0-9); NEUT % 66 % (31-73); PLATELET COUNT 125 x10^3/uL (140-400); RED BLOOD COUNT 3.92 x10^6/uL (3.50-5.40); RED CELL DISTRIBUTION WIDTH 13.7 % (11.5-14.5); WHITE BLOOD COUNT 7.6 x10^3/uL (4.0-11.0)
[2019-07-27 07:36] LABS: ALBUMIN 2.6 g/dL (3.4-5.0); ALBUMIN/GLOBULIN RATIO 0.7 (1.0-1.7); CALCIUM 8.5 mg/dL (8.5-10.1); CREATININE 0.6 mg/dL (0.6-1.0); GFR 98.8; POTASSIUM 4.1 mmol/L (3.5-5.1); TOTAL BILIRUBIN 0.3 mg/dL (0.2-1.0); TOTAL PROTEIN 6.6 g/dL (6.4-8.2)
[2019-07-27] MEDS: NYSTATIN TOPICAL POWDER 15GM BOTTLE. TP SCH ×2 (08:54→21:29)
[2019-07-27] MEDS: KETOCONAZOLE 2% SHAMPOO 120ML BOTTLE. TP SCH (08:54)
[2019-07-27] MEDS: MIRABEGRON 25 MG TAB.ER.24H PO SCH (08:54)
[2019-07-27] MEDS: LACTOBACILLUS RHAMNOSUS GG 1 CAPSULE. PO SCH (08:55)
[2019-07-27] MEDS: POLYETHYLENE GLYCOL 3350 17 GM PACKET. PO SCH (08:55)
[2019-07-27] MEDS: LACTULOSE 20 GM/30 ML SOLUTION. PO SCH (08:55)
[2019-07-27] MEDS: DIVALPROEX 125 MG CAP.SPRINK PO SCH ×3 (08:56→21:28)
[2019-07-27] MEDS: APIXABAN 2.5 MG TABLET PO SCH ×2 (08:56→21:28)
[2019-07-27] MEDS: DOCUSATE SODIUM 100 MG CAPSULE PO SCH (08:56)
[2019-07-27] MEDS: busPIRone 5 MG TABLET. PO SCH ×3 (08:57→21:28)
[2019-07-27] MEDS: NITROFURANTOIN MONOHYD/M-CRYST 100 MG CAPSULE. PO SCH (08:57)
[2019-07-27] MEDS: QUEtiapine 100 MG TABLET. PO SCH ×3 (08:57→17:17)
[2019-07-27] MEDS: FOLIC ACID 1 MG TABLET PO SCH (08:58)
[2019-07-27] MEDS: FUROSEMIDE 20 MG TABLET PO SCH (08:58)
[2019-07-27] MEDS: CHOLECALCIFEROL (VITAMIN D3) 1,000 UNIT TABLET PO SCH (08:58)
[2019-07-27] MEDS: BENZTROPINE MESYLATE 1 MG TABLET PO SCH ×3 (08:58→21:28)
[2019-07-27] MEDS: CALCIUM CARB/VIT D3 500/200 TABLET PO SCH ×3 (08:58→21:28)
[2019-07-27] MEDS: ASPIRIN 81 MG TAB.CHEW PO SCH (08:58)
[2019-07-27] MEDS: carBAMazepine 200 MG TABLET PO SCH ×4 (08:59→21:29)
[2019-07-27] MEDS: POTASSIUM CHLORIDE 10 MEQ TABLET.ER. PO SCH (08:59)
[2019-07-27] MEDS: MULTIVITAMIN with MINERAL TABLET. PO SCH (08:59)
[2019-07-27] MEDS: CETIRIZINE HCL 10 MG TABLET PO SCH (08:59)
--- NOTE | 2019-07-27 14:48 | PN ---
DATE: 07/26/2019 PSYCHIATRIC PROGRESS NOTE This late entry 07/26/2019 covers elements not covered in my initial note. SUBJECTIVE: I met with the patient evening of 07/26/2019. Per Lynda RN, the patient slept 6-1/4 hours previous night. UA, C and S is negative. She has been pleasant, confused, and compliant with medications, somewhat obsessed about one of the nursing aides. REVIEW OF SYSTEMS: No CV, , pulmonary, eye system symptoms on review. Reliability poor. Gait unsteady, in wheelchair. MENTAL STATUS EXAM: Oriented to herself. Insight, judgment, recent and remote memory, attention, concentration, fund of knowledge poor, consistent with her diagnosis mentioned in my initial note. PLAN: No change from initial note. MAN Og ARANGO MD DR: DAIN/lois JOB#: [id number] / [id number]
--- NOTE | 2019-07-27 16:00 | NUR ---
CLERICAL COORDINATOR reports that while toileting patient, she went limp while standing at the rail and her right knee hit the wall. CLERICAL COORDINATOR reports that there is a small abrasion at time of injury. On inspection, knee has a small bruise and mild edema. Patient complains of tenderness to palpation pretty much everywhere on her body. Will continue to monitor.
[2019-07-27 16:08] VITALS: BP 93/48
[2019-07-27] MEDS: ACETAMINOPHEN 325 MG TABLET PO PRN ×2 (17:17→23:37)
--- NOTE | 2019-07-27 18:22 | NUR ---
Patient has been disorganized, generally restless, attention seeking, and compliant with medications throughout this shift. She was up at breakfast, then laid down after lunch. She has been calling out increasingly in the late afternoon after her nap and during dinner. She complained of knee pain at dinner, prn medication provided per eMAR. Will continue to monitor and report to oncoming shift.
--- NOTE | 2019-07-27 19:52 | PDOC ---
Exam Note: Edwin Note: Please also refer to the separate dictated note~for this date of service dictated separately.~Patient seen individually. Discussed the patient with Nursing staff reviewed the chart.~Reviewed interim history and current functioning. Reviewed vital signs,~Labs/ Radiology~and current medications noted below. Continue current treatment with the changes noted in the dictated addendum note Assessment: Vital Signs/I&O: Vital Signs Date Time Temp Pulse Resp B/P (MAP) Pulse Ox O2 Delivery O2 Flow Rate FiO2 07/27/19 16:08 97.6 81 18 93/48 (63) 93 07/26/19 05:44 Room Air I & O 07/26/19 07/26/19 07/27/19 14:59 22:59 06:59 Intake Total 840 ml 360 ml 120 ml Balance 840 ml 360 ml 120 ml Labs: Laboratory Tests Test 07/27/19 06:20 White Blood Count 7.6 x10^3/uL (4.0-11.0) Red Blood Count 3.92 x10^6/uL (3.50-5.40) Hemoglobin 11.3 g/dL (12.0-15.5) L Hematocrit 35.4 % (36.0-47.0) L Mean Corpuscular Volume 90 fL (79-100) Mean Corpuscular Hemoglobin 29 pg (25-35) Mean Corpuscular Hemoglobin Concent 32 g/dL (31-37) Red Cell Distribution Width 13.7 % (11.5-14.5) Platelet Count 125 x10^3/uL (140-400) L Neutrophils (%) (Auto) 66 % (31-73) Lymphocytes (%) (Auto) 15 % (24-48) L Monocytes (%) (Auto) 16 % (0-9) H Eosinophils (%) (Auto) 3 % (0-3) Basophils (%) (Auto) 0 % (0-3) Neutrophils # (Auto) 5.0 x10^3uL (1.8-7.7) Lymphocytes # (Auto) 1.2 x10^3/uL (1.0-4.8) Monocytes # (Auto) 1.2 x10^3/uL (0.0-1.1) H Eosinophils # (Auto) 0.2 x10^3/uL (0.0-0.7) Basophils # (Auto) 0.0 x10^3/uL (0.0-0.2) Sodium Level 146 mmol/L (136-145) H Potassium Level 4.1 mmol/L (3.5-5.1) Chloride Level 107 mmol/L (98-107) Carbon Dioxide Level 30 mmol/L (21-32) Anion Gap 9 (6-14) Blood Urea Nitrogen 20 mg/dL (7-20) Creatinine 0.6 mg/dL (0.6-1.0) Estimated GFR (Cockcroft-Gault) 98.8 BUN/Creatinine Ratio 33 (6-20) H Glucose Level 80 mg/dL (70-99) Calcium Level 8.5 mg/dL (8.5-10.1) Total Bilirubin 0.3 mg/dL (0.2-1.0) Aspartate Amino Transferase (AST) 18 U/L (15-37) Alanine Aminotransferase (ALT) 10 U/L (14-59) L Alkaline Phosphatase 75 U/L (46-116) Total Protein 6.6 g/dL (6.4-8.2) Albumin 2.6 g/dL (3.4-5.0) L Albumin/Globulin Ratio 0.7 (1.0-1.7) L Current Medications: Meds: Current Medications Medications (Trade) Dose Ordered Sig/Sukhwinder Route PRN Reason Start Time Stop Time Status Last Admin Dose Admin Ketoconazole (Nizoral 2% Shampoo) 1 tho TuThSa TP 07/27/19 09:00 07/27/19 08:54 Multivitamins/ Calcium (Thera-M Plus) 1 tab DAILY PO 07/27/19 09:00 07/27/19 08:59 I have reviewed the current psychotropics carefully including drug interactions. Risk benefit ratio favors no change other than as noted in my dictated progress note. Diagnosis: Problems: (1) Schizoaffective disorder, bipolar type (2) Dementia, vascular, with depression (3) Dementia, vascular, with delusions (4) Major neurocognitive disorder, due to vascular disease, with behavioral disturbance, mild (5) Medical clearance for psychiatric admission (6) Anxiety disorder (7) Dementia in Alzheimer's disease with delusions (8) Dementia in Alzheimer's disease with depression (9) Impulse control disorder (10) Intellectual disability LOGAN ARANGO MD Jul 27, 2019 19:52
--- NOTE | 2019-07-27 23:27 | NUR ---
Nursing Note Pt takes meds in pudding followed by thick liquids, screams loudly and speech is slurred difficult to make her needs known. I can understand "my Knee, my Knee" pt has some bruising to knee and has difficulty bearing weight, Techs say that she goes weight on them will give tylenol.
[2019-07-28] MEDS ORDERED: METHYL SALICYLATE/MENTHOL TOPICAL OINTMENT 57GM TUBE. TP PRN (02:00)
[2019-07-28] MEDS: LEVOTHYROXINE 137 MCG TABLET PO SCH (04:17)
[2019-07-28 06:07] VITALS: BP 154/66
[2019-07-28] MEDS: FUROSEMIDE 20 MG TABLET PO SCH (08:19)
[2019-07-28] MEDS: CHOLECALCIFEROL (VITAMIN D3) 1,000 UNIT TABLET PO SCH (08:20)
[2019-07-28] MEDS: MIRABEGRON 25 MG TAB.ER.24H PO SCH (08:20)
[2019-07-28] MEDS: POTASSIUM CHLORIDE 10 MEQ TABLET.ER. PO SCH (08:20)
[2019-07-28] MEDS: MULTIVITAMIN with MINERAL TABLET. PO SCH (08:21)
[2019-07-28] MEDS: ASPIRIN 81 MG TAB.CHEW PO SCH (08:21)
[2019-07-28] MEDS: CALCIUM CARB/VIT D3 500/200 TABLET PO SCH ×3 (08:21→20:27)
[2019-07-28] MEDS: CETIRIZINE HCL 10 MG TABLET PO SCH (08:21)
[2019-07-28] MEDS: DIVALPROEX 125 MG CAP.SPRINK PO SCH ×3 (08:22→20:26)
[2019-07-28] MEDS: NITROFURANTOIN MONOHYD/M-CRYST 100 MG CAPSULE. PO SCH (08:22)
[2019-07-28] MEDS: DOCUSATE SODIUM 100 MG CAPSULE PO SCH (08:22)
[2019-07-28] MEDS: POLYETHYLENE GLYCOL 3350 17 GM PACKET. PO SCH (08:22)
[2019-07-28] MEDS: BENZTROPINE MESYLATE 1 MG TABLET PO SCH ×3 (08:22→20:28)
[2019-07-28] MEDS: LACTOBACILLUS RHAMNOSUS GG 1 CAPSULE. PO SCH (08:22)
[2019-07-28] MEDS: busPIRone 5 MG TABLET. PO SCH ×3 (08:23→20:27)
[2019-07-28] MEDS: carBAMazepine 200 MG TABLET PO SCH ×4 (08:24→20:27)
[2019-07-28] MEDS: QUEtiapine 100 MG TABLET. PO SCH ×3 (08:24→17:46)
[2019-07-28] MEDS: FOLIC ACID 1 MG TABLET PO SCH (08:24)
[2019-07-28] MEDS: APIXABAN 2.5 MG TABLET PO SCH ×2 (08:24→20:28)
[2019-07-28] MEDS: NYSTATIN TOPICAL POWDER 15GM BOTTLE. TP SCH ×2 (08:25→20:28)
[2019-07-28] MEDS: LACTULOSE 20 GM/30 ML SOLUTION. PO SCH (08:25)
--- NOTE | 2019-07-28 13:46 | RAD ---
KNEE RIGHT 3V 07/28/2019 8:00 AM INDICATION: Right knee pain and swelling, fall yesterday COMPARISON: None available. TECHNIQUE: 3 views the right knee are provided. FINDINGS/ IMPRESSION: 1. There is a comminuted , obliquely oriented fracture of the proximal tibial metadiaphysis with extension through the lateral tibial plateau immediately adjacent to the tibial eminence. 2. Minimally displaced fibular neck fracture. 3. Hardware is identified transfixing the distal femur. Distal femoral condyles appear intact. 4. There is a moderate to large size knee joint effusion. Electronically signed by: Ana Lilia Quinn MD (07/28/2019 1:43 PM) [id number]
[2019-07-28] MEDS: ACETAMINOPHEN 325 MG TABLET PO PRN (14:08)
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
[2019-07-28 16:26] VITALS: BP 136/58
[2019-07-28] MEDS: oxyCODONE IR 5 MG TABLET PO PRN ×2 (17:47→22:28)
--- NOTE | 2019-07-28 18:05 | NUR ---
Patient has been disorganized, generally restless, attention seeking, and compliant with medications throughout this shift. She was up at breakfast, then laid down about 11:00 and has been in bed the remainder of this shift. She has been calling out at times, usually wanting a snack. Knee x-ray results received, knee immobilizer placed until MD can consult ortho. PRN pain medication provided at dinnertime per eMAR. Will continue to monitor and report to oncoming shift.
--- NOTE | 2019-07-28 19:52 | PDOC ---
Exam Note: Edwin Note: Please also refer to the separate dictated note~for this date of service dictated separately.~Patient seen individually. Discussed the patient with Nursing staff reviewed the chart.~Reviewed interim history and current functioning. Reviewed vital signs,~Labs/ Radiology~and current medications noted below. Continue current treatment with the changes noted in the dictated addendum note Assessment: Vital Signs/I&O: Vital Signs Date Time Temp Pulse Resp B/P (MAP) Pulse Ox O2 Delivery O2 Flow Rate FiO2 07/28/19 17:47 91 Room Air 07/28/19 16:26 98.7 102 20 136/58 (84) I & O 07/27/19 07/27/19 07/28/19 15:00 23:00 07:00 Intake Total 480 ml 240 ml Balance 480 ml 240 ml Current Medications: Meds: Current Medications Medications (Trade) Dose Ordered Sig/Sukhwinder Route PRN Reason Start Time Stop Time Status Last Admin Dose Admin Oxycodone HCl (Roxicodone) 5 mg PRN Q4HRS PRN PO PAIN 07/28/19 17:30 07/28/19 17:47 I have reviewed the current psychotropics carefully including drug interactions. Risk benefit ratio favors no change other than as noted in my dictated progress note. Diagnosis: Problems: (1) Schizoaffective disorder, bipolar type (2) Dementia, vascular, with depression (3) Dementia, vascular, with delusions (4) Major neurocognitive disorder, due to vascular disease, with behavioral disturbance, mild (5) Anxiety disorder (6) Dementia in Alzheimer's disease with delusions (7) Dementia in Alzheimer's disease with depression (8) Impulse control disorder (9) Intellectual disability LOGAN ARANGO MD Jul 28, 2019 19:52
[2019-07-28] MEDS: MIRTAZAPINE ODT 15 MG TAB.RAPDIS. PO SCH (20:27)
--- NOTE | 2019-07-28 21:23 | NUR ---
Nursing Note Pt asleep intermittently wakes up and states I want to get up! Speech is garbled, but can make her needs known. Seems to be in pain, will give roxycodone soon. Compliant and cooperative with meds and assessment. Knee immobilizer in place.
--- NOTE | 2019-07-29 01:07 | PN ---
DATE: 07/27/2019 PSYCHIATRIC PROGRESS NOTE This late entry of 07/27/2019 covers the elements not covered in my initial note. SUBJECTIVE: I met with the patient in the evening. Per Fer RN, the patient slept 6 hours previous night. She has been somewhat drowsy, not aggressive. Remains confused. REVIEW OF SYSTEMS: Ambulation impaired, in wheelchair. No CV, , pulmonary, eye, ENT system symptoms on review. Reliability poor. MENTAL STATUS EXAM: Oriented to herself. Insight, judgment, recent and remote memory, attention, concentration, fund of knowledge poor, consistent with her diagnosis mentioned in my initial note. PLAN: No change from initial note. We may consider reducing the Cogentin, but for now maintain BuSpar, Tegretol, Depakote, the latter 2 levels are therapeutic along with Seroquel. MAN Og ARANGO MD DR: DAIN/lois JOB#: [id number] / [id number]
[2019-07-29] MEDS: LEVOTHYROXINE 137 MCG TABLET PO SCH (01:27)
[2019-07-29 05:57] VITALS: BP 115/52
[2019-07-29] MEDS: POLYETHYLENE GLYCOL 3350 17 GM PACKET. PO SCH (08:10)
[2019-07-29] MEDS: LACTOBACILLUS RHAMNOSUS GG 1 CAPSULE. PO SCH (08:11)
[2019-07-29] MEDS: LACTULOSE 20 GM/30 ML SOLUTION. PO SCH (08:11)
[2019-07-29] MEDS: DOCUSATE SODIUM 100 MG CAPSULE PO SCH (08:12)
[2019-07-29] MEDS: FUROSEMIDE 20 MG TABLET PO SCH (08:12)
[2019-07-29] MEDS: carBAMazepine 200 MG TABLET PO SCH ×4 (08:13→20:23)
[2019-07-29] MEDS: BENZTROPINE MESYLATE 1 MG TABLET PO SCH ×2 (08:13→20:23)
[2019-07-29] MEDS: NITROFURANTOIN MONOHYD/M-CRYST 100 MG CAPSULE. PO SCH (08:13)
[2019-07-29] MEDS: ASPIRIN 81 MG TAB.CHEW PO SCH (08:13)
[2019-07-29] MEDS: CALCIUM CARB/VIT D3 500/200 TABLET PO SCH ×3 (08:13→20:22)
[2019-07-29] MEDS: CHOLECALCIFEROL (VITAMIN D3) 1,000 UNIT TABLET PO SCH (08:14)
[2019-07-29] MEDS: DIVALPROEX 125 MG CAP.SPRINK PO SCH ×3 (08:14→20:23)
[2019-07-29] MEDS: busPIRone 5 MG TABLET. PO SCH ×3 (08:14→20:22)
[2019-07-29] MEDS: QUEtiapine 100 MG TABLET. PO SCH ×3 (08:14→16:20)
[2019-07-29] MEDS: MULTIVITAMIN with MINERAL TABLET. PO SCH (08:14)
[2019-07-29] MEDS: CETIRIZINE HCL 10 MG TABLET PO SCH (08:15)
[2019-07-29] MEDS: APIXABAN 2.5 MG TABLET PO SCH ×2 (08:15→20:22)
[2019-07-29] MEDS: oxyCODONE IR 5 MG TABLET PO PRN ×4 (08:15→20:22)
[2019-07-29] MEDS: FOLIC ACID 1 MG TABLET PO SCH (08:15)
[2019-07-29] MEDS: POTASSIUM CHLORIDE 10 MEQ TABLET.ER. PO SCH (08:15)
[2019-07-29] MEDS: MIRABEGRON 25 MG TAB.ER.24H PO SCH (08:15)
[2019-07-29] MEDS: NYSTATIN TOPICAL POWDER 15GM BOTTLE. TP SCH ×2 (08:28→20:23)
[2019-07-29] MEDS: KETOCONAZOLE 2% SHAMPOO 120ML BOTTLE. TP SCH (08:28)
--- NOTE | 2019-07-29 09:38 | NUR ---
WEEKLY ACTIVITY THERAPY NOTE Date of Admission: 07/22/2019 Date of AT Assessment: 07/25/2019 Goal aimed: to increase stimulation and attention span Initial Goal: Pt. will participate in at least five individual Activity Therapy sessions before discharge. Weekly progress towards goal: on track 09/12 (07/26- M2M) Group participation level: minimal in one group Weekly highlights: following exercise moves on Friday, wanted hug from RIVER [employer]STER Behaviors observed: wandering, restless at times, less tugging at clothes as week goes on, sleeping often Plan: no change to goal Beneficial adaptations: potentially gross motor activities
--- NOTE | 2019-07-29 10:35 | NUR ---
Patient is in the dining room for medications and assessments. She is calm, cooperative and compliant. She takes her meds crushed mixed with vanilla pudding. No verbalization of pain, but is grimacing and seems uncomfortable. PRN Roxycodone given with morning medications. No agitation noted, no evidence of hallucinations or delusions.
--- NOTE | 2019-07-29 12:26 | NUR ---
FEDERICA contacted FEDERICA Caba at [facility], regarding pt. progress and tentative discharge for the early part of the week after next. FEDERICA did share information about pt. fracture. Gertrudis requested information of fracture be sent to Xin, [employer] at [facility], which FEDERICA did send. FEDERICA contacted Hailey, [place] [employer] for [facility], regarding pt. progress, discharge, and fracture.
--- NOTE | 2019-07-29 12:33 | NUR ---
WEEKLY NOTE Pt. has been eating 75% of meals and sleeping an average of 6 hours. Pt. has been yelling out intermittently but overall compliant and cooperative. Pt. did sustain a tib plateau fx on day shift on 07/27 and has a knee immobilizer. Pt. medication continues to be adjusted and monitored. Pt. is being tapered off of Cogentin. Pt. is scheduled to discharge back to [facility] the early part of the week after next.
--- NOTE | 2019-07-29 14:22 | NUR ---
Patient complained of knee pain, received PRN Roxycodone at 1215. Moderate effect.
--- NOTE | 2019-07-29 14:26 | NUR ---
Patient continues to be agitated due to knee pain. Zyprexa Zydis 2.5mg given with 1400 meds.
[2019-07-29 16:02] VITALS: BP 136/69
--- NOTE | 2019-07-29 19:58 | PDOC ---
Exam Note: Edwin Note: Please also refer to the separate dictated note~for this date of service dictated separately.~Patient seen individually. Discussed the patient with Nursing staff reviewed the chart.~Reviewed interim history and current functioning. Reviewed vital signs,~Labs/ Radiology~and current medications noted below. Continue current treatment with the changes noted in the dictated addendum note Assessment: Vital Signs/I&O: Vital Signs Date Time Temp Pulse Resp B/P (MAP) Pulse Ox O2 Delivery O2 Flow Rate FiO2 07/29/19 16:02 97.6 91 18 136/69 (91) 95 07/28/19 17:47 Room Air I & O 07/28/19 07/28/19 07/29/19 15:00 23:00 07:00 Intake Total 480 ml 0 ml Balance 480 ml 0 ml Current Medications: Meds: Current Medications Medications (Trade) Dose Ordered Sig/Sukhwinder Route PRN Reason Start Time Stop Time Status Last Admin Dose Admin Benztropine Mesylate (Cogentin) 1 mg BID PO 07/28/19 21:00 07/31/19 23:50 07/29/19 08:13 Mirtazapine (Remeron Dania-Tab) 7.5 mg QHS PO 07/28/19 21:00 07/28/19 20:27 Oxycodone HCl (Roxicodone) 10 mg PRN Q4HRS PRN PO PAIN 07/29/19 14:45 07/29/19 16:21 I have reviewed the current psychotropics carefully including drug interactions. Risk benefit ratio favors no change other than as noted in my dictated progress note. Diagnosis: Problems: (1) Schizoaffective disorder, bipolar type (2) Dementia, vascular, with depression (3) Dementia, vascular, with delusions (4) Major neurocognitive disorder, due to vascular disease, with behavioral disturbance, mild (5) Anxiety disorder (6) Dementia in Alzheimer's disease with delusions (7) Dementia in Alzheimer's disease with depression (8) Impulse control disorder (9) Intellectual disability OLGAN ARANGO MD Jul 29, 2019 19:57
[2019-07-29] MEDS: MIRTAZAPINE ODT 15 MG TAB.RAPDIS. PO SCH (20:22)
--- NOTE | 2019-07-29 22:31 | NUR ---
Nursing Note Pt yells intermittently, states shes ready for bed, and just makes odd cries at times. Cooperative with encouragement with meds and assessment.
[2019-07-30] MEDS: LEVOTHYROXINE 137 MCG TABLET PO SCH (05:29)
[2019-07-30 05:58] VITALS: BP 114/56
[2019-07-30] MEDS: LACTULOSE 20 GM/30 ML SOLUTION. PO SCH (08:45)
[2019-07-30] MEDS: NYSTATIN TOPICAL POWDER 15GM BOTTLE. TP SCH ×2 (08:45→20:32)
[2019-07-30] MEDS: POLYETHYLENE GLYCOL 3350 17 GM PACKET. PO SCH (08:46)
[2019-07-30] MEDS: QUEtiapine 100 MG TABLET. PO SCH ×3 (08:47→16:28)
[2019-07-30] MEDS: BENZTROPINE MESYLATE 1 MG TABLET PO SCH ×2 (08:47→20:31)
[2019-07-30] MEDS: CHOLECALCIFEROL (VITAMIN D3) 1,000 UNIT TABLET PO SCH (08:48)
[2019-07-30] MEDS: DOCUSATE SODIUM 100 MG CAPSULE PO SCH (08:48)
[2019-07-30] MEDS: busPIRone 5 MG TABLET. PO SCH ×3 (08:56→20:32)
[2019-07-30] MEDS: APIXABAN 2.5 MG TABLET PO SCH ×2 (08:57→20:31)
[2019-07-30] MEDS: LACTOBACILLUS RHAMNOSUS GG 1 CAPSULE. PO SCH (08:57)
[2019-07-30] MEDS: ASPIRIN 81 MG TAB.CHEW PO SCH (08:57)
[2019-07-30] MEDS: DIVALPROEX 125 MG CAP.SPRINK PO SCH ×3 (08:57→20:32)
[2019-07-30] MEDS: CETIRIZINE HCL 10 MG TABLET PO SCH (08:58)
[2019-07-30] MEDS: MULTIVITAMIN with MINERAL TABLET. PO SCH (08:58)
[2019-07-30] MEDS: FOLIC ACID 1 MG TABLET PO SCH (08:58)
[2019-07-30] MEDS: CALCIUM CARB/VIT D3 500/200 TABLET PO SCH ×3 (09:00→20:31)
[2019-07-30] MEDS: FUROSEMIDE 20 MG TABLET PO SCH (09:00)
[2019-07-30] MEDS: POTASSIUM CHLORIDE 10 MEQ TABLET.ER. PO SCH (09:00)
[2019-07-30] MEDS: NITROFURANTOIN MONOHYD/M-CRYST 100 MG CAPSULE. PO SCH (09:01)
[2019-07-30] MEDS: carBAMazepine 200 MG TABLET PO SCH ×4 (09:01→20:31)
[2019-07-30] MEDS: oxyCODONE IR 5 MG TABLET PO PRN ×4 (09:02→20:32)
[2019-07-30] MEDS: MIRABEGRON 25 MG TAB.ER.24H PO SCH (09:04)
--- NOTE | 2019-07-30 11:01 | NUR ---
Patient is in the dining room for medications and assessments. She is calm, cooperative and compliant. She takes her meds crushed mixed with vanilla pudding. Yelling and pointing at her right knee. PRN Roxycodone given with morning medications. No agitation noted, no evidence of hallucinations or delusions.
[2019-07-30 16:14] VITALS: BP 111/58
--- NOTE | 2019-07-30 17:01 | NUR ---
[employer] Professor orthotics in to fit patient for special knee immobilizer. Care and application instructions and extra pieces are on front of patient chart.
[2019-07-30] MEDS: MIRTAZAPINE ODT 15 MG TAB.RAPDIS. PO SCH (20:31)
--- NOTE | 2019-07-30 20:33 | PDOC ---
Exam Note: Edwin Note: Please also refer to the separate dictated note~for this date of service dictated separately.~Patient seen individually. Discussed the patient with Nursing staff reviewed the chart.~Reviewed interim history and current functioning. Reviewed vital signs,~Labs/ Radiology~and current medications noted below. Continue current treatment with the changes noted in the dictated addendum note Assessment: Vital Signs/I&O: Vital Signs Date Time Temp Pulse Resp B/P (MAP) Pulse Ox O2 Delivery O2 Flow Rate FiO2 07/30/19 16:14 97.7 94 20 111/58 (75) 93 Room Air I & O 07/29/19 07/29/19 07/30/19 15:00 23:00 07:00 Intake Total 600 ml 360 ml Balance 600 ml 360 ml Current Medications: I have reviewed the current psychotropics carefully including drug interactions. Risk benefit ratio favors no change other than as noted in my dictated progress note. Diagnosis: Problems: (1) Schizoaffective disorder, bipolar type (2) Dementia, vascular, with depression (3) Dementia, vascular, with delusions (4) Major neurocognitive disorder, due to vascular disease, with behavioral disturbance, mild (5) Anxiety disorder (6) Dementia in Alzheimer's disease with delusions (7) Dementia in Alzheimer's disease with depression (8) Impulse control disorder (9) Intellectual disability LOGAN ARANGO MD Jul 30, 2019 20:33
--- NOTE | 2019-07-30 22:41 | NUR ---
Nsg Note: Patient was in day room at time of medication administration and assessments. Patient moaning and groaning with occasional sporadic movements but calm, cooperative, compliant with all cares. Patient received PRN Zydis and Roxycodone with HS medications. No other notable behaviors at this time.
--- NOTE | 2019-07-30 23:24 | PN ---
DATE: 07/28/2019 PSYCHIATRIC PROGRESS NOTE This late entry 07/28/2019 covers the elements not covered in my initial note. SUBJECTIVE: I met with the patient in the evening. Per Fer RN, the patient slept 3 hours previous night. She remains somewhat agitated, suspicious, has a tibia-fibula fracture on the right. We will defer to Dr. Mcbride. REVIEW OF SYSTEMS: Ambulation impaired, in wheelchair. No CV, , pulmonary, eye system symptoms on review. Reliability poor. MENTAL STATUS EXAM: Oriented to herself. Insight, judgment, recent and remote memory, attention, concentration, fund of knowledge poor, consistent with her diagnosis mentioned in my initial note. PLAN: Start Remeron 7.5 mg at bedtime, Zyprexa 2.5 mg q.2 hours p.r.n. psychosis, agitation, max 10 mg in 24 hours. Reduce Cogentin from 1 mg t.i.d. down to twice a day and then 3 days later to 0.5 mg b.i.d. Continue rest unchanged including BuSpar, Tegretol, Depakote, Seroquel. MAN Og ARANGO MD DR: DAIN/lois JOB#: [id number] / [id number]
[2019-07-31] MEDS: oxyCODONE IR 5 MG TABLET PO PRN ×2 (02:22→09:50)
--- NOTE | 2019-07-31 02:36 | PN ---
DATE: 07/29/2019 PSYCHIATRIC PROGRESS NOTE This late entry 07/29/2019 covers the elements not covered in my initial note. SUBJECTIVE: I met with the patient in the evening, staffed at a treatment team meeting with the entire team in the morning. The patient slept 6-3/4 hours previous night. Appetite is 75%. Yelling intermittently. She does have tibia fibula fracture and pain, will defer to Dr. Mcbride. REVIEW OF SYSTEMS: Ambulation impaired, in wheelchair. No CV, , pulmonary, eye system symptoms on review. Reliability poor. MENTAL STATUS EXAM: Oriented to herself. Insight, judgment, recent and remote memory, attention, concentration, fund of knowledge poor, consistent with her diagnosis mentioned in my initial note. PLAN: She did get oxycodone, which has been increased per Dr. Mcbride. Rest unchanged for now. MAN Og ARANGO MD DR: DAIN/lois JOB#: [id number] / [id number]
[2019-07-31 05:54] VITALS: BP 109/59
[2019-07-31] MEDS: LEVOTHYROXINE 137 MCG TABLET PO SCH (06:00)
[2019-07-31] MEDS: ASPIRIN 81 MG TAB.CHEW PO SCH (08:28)
[2019-07-31] MEDS: DOCUSATE SODIUM 100 MG CAPSULE PO SCH (08:28)
[2019-07-31] MEDS: BENZTROPINE MESYLATE 1 MG TABLET PO SCH ×2 (08:28→21:46)
[2019-07-31] MEDS: QUEtiapine 100 MG TABLET. PO SCH ×4 (08:28→20:30)
[2019-07-31] MEDS: APIXABAN 2.5 MG TABLET PO SCH ×2 (08:29→21:46)
[2019-07-31] MEDS: DIVALPROEX 125 MG CAP.SPRINK PO SCH ×3 (08:29→21:46)
[2019-07-31] MEDS: LACTULOSE 20 GM/30 ML SOLUTION. PO SCH (08:29)
[2019-07-31] MEDS: POTASSIUM CHLORIDE 10 MEQ TABLET.ER. PO SCH (08:29)
[2019-07-31] MEDS: FOLIC ACID 1 MG TABLET PO SCH (08:29)
[2019-07-31] MEDS: LACTOBACILLUS RHAMNOSUS GG 1 CAPSULE. PO SCH (08:29)
[2019-07-31] MEDS: NITROFURANTOIN MONOHYD/M-CRYST 100 MG CAPSULE. PO SCH (08:30)
[2019-07-31] MEDS: FUROSEMIDE 20 MG TABLET PO SCH (08:30)
[2019-07-31] MEDS: POLYETHYLENE GLYCOL 3350 17 GM PACKET. PO SCH (08:30)
[2019-07-31] MEDS: MIRABEGRON 25 MG TAB.ER.24H PO SCH (08:31)
[2019-07-31] MEDS: carBAMazepine 200 MG TABLET PO SCH ×4 (08:31→21:47)
[2019-07-31] MEDS: busPIRone 5 MG TABLET. PO SCH ×3 (08:31→21:46)
[2019-07-31] MEDS: CETIRIZINE HCL 10 MG TABLET PO SCH (08:31)
[2019-07-31] MEDS: CHOLECALCIFEROL (VITAMIN D3) 1,000 UNIT TABLET PO SCH (08:31)
[2019-07-31] MEDS: NYSTATIN TOPICAL POWDER 15GM BOTTLE. TP SCH ×2 (08:38→21:00)
[2019-07-31] MEDS: MULTIVITAMIN with MINERAL TABLET. PO SCH (09:00)
[2019-07-31] MEDS: KETOCONAZOLE 2% SHAMPOO 120ML BOTTLE. TP SCH (09:00)
[2019-07-31] MEDS: CALCIUM CARB/VIT D3 500/200 TABLET PO SCH ×3 (09:00→21:00)
--- NOTE | 2019-07-31 11:06 | NUR ---
Pt is confused, calm, cooperative, and disorganized. No agitation, no aggression, no hallucinations, no delusions. PRN pain medication given. Pt is compliant with her medication and assessment.
[2019-07-31 15:55] VITALS: BP 117/67
--- NOTE | 2019-07-31 20:35 | PDOC ---
Exam Note: Edwin Note: Please also refer to the separate dictated note~for this date of service dictated separately.~Patient seen individually. Discussed the patient with Nursing staff reviewed the chart.~Reviewed interim history and current functioning. Reviewed vital signs,~Labs/ Radiology~and current medications noted below. Continue current treatment with the changes noted in the dictated addendum note Assessment: Vital Signs/I&O: Vital Signs Date Time Temp Pulse Resp B/P (MAP) Pulse Ox O2 Delivery O2 Flow Rate FiO2 07/31/19 15:55 97.8 93 14 117/67 (84) 95 07/31/19 05:54 Room Air I & O 07/30/19 07/30/19 07/31/19 15:00 23:00 07:00 Intake Total 480 ml 120 ml Balance 480 ml 120 ml Current Medications: I have reviewed the current psychotropics carefully including drug interactions. Risk benefit ratio favors no change other than as noted in my dictated progress note. Diagnosis: Problems: (1) Schizoaffective disorder, bipolar type (2) Dementia, vascular, with depression (3) Dementia, vascular, with delusions (4) Major neurocognitive disorder, due to vascular disease, with behavioral disturbance, mild (5) Anxiety disorder (6) Dementia in Alzheimer's disease with delusions (7) Dementia in Alzheimer's disease with depression (8) Impulse control disorder (9) Intellectual disability LOGAN ARANGO MD Jul 31, 2019 20:35
[2019-07-31] MEDS: MIRTAZAPINE ODT 15 MG TAB.RAPDIS. PO SCH (21:46)
--- NOTE | 2019-08-01 01:13 | NUR ---
Pt confused, cooperative, pleasant; compliant with cares. Med compliant with thickened cranberry juice. No evidence of aspiration or trouble swallowing thickened juice. Will continue to monitor.
[2019-08-01 05:45] VITALS: BP 110/55
[2019-08-01] MEDS: LEVOTHYROXINE 137 MCG TABLET PO SCH (06:00)
[2019-08-01 08:33] LABS: BASO % 0 % (0-3); EOS # 0.3 x10^3/uL (0.0-0.7); EOS % 3 % (0-3); HEMATOCRIT 33.3 % (36.0-47.0); HEMOGLOBIN 10.9 g/dL (12.0-15.5); LYMPH # 1.1 x10^3/uL (1.0-4.8); LYMPH % 11 % (24-48); MEAN CORPUSCULAR HEMOGLOBIN 29 pg (25-35); MEAN CORPUSCULAR HGB CONC 33 g/dL (31-37); MEAN CORPUSCULAR VOLUME 89 fL (79-100); MONO # 1.3 x10^3/uL (0.0-1.1); MONO % 13 % (0-9); NEUT % 72 % (31-73); PLATELET COUNT 160 x10^3/uL (140-400); RED BLOOD COUNT 3.72 x10^6/uL (3.50-5.40); RED CELL DISTRIBUTION WIDTH 13.7 % (11.5-14.5); WHITE BLOOD COUNT 9.7 x10^3/uL (4.0-11.0)
[2019-08-01] MEDS: QUEtiapine 100 MG TABLET. PO SCH ×3 (08:51→17:05)
[2019-08-01] MEDS: busPIRone 5 MG TABLET. PO SCH ×3 (08:52→20:30)
[2019-08-01] MEDS: DIVALPROEX 125 MG CAP.SPRINK PO SCH ×3 (08:53→20:32)
[2019-08-01] MEDS: ASPIRIN 81 MG TAB.CHEW PO SCH (08:53)
[2019-08-01] MEDS: LACTOBACILLUS RHAMNOSUS GG 1 CAPSULE. PO SCH (08:53)
[2019-08-01] MEDS: DOCUSATE SODIUM 100 MG CAPSULE PO SCH (08:53)
[2019-08-01] MEDS: LACTULOSE 20 GM/30 ML SOLUTION. PO SCH (08:54)
[2019-08-01] MEDS: APIXABAN 2.5 MG TABLET PO SCH ×2 (08:54→20:32)
[2019-08-01] MEDS: POTASSIUM CHLORIDE 10 MEQ TABLET.ER. PO SCH (08:54)
[2019-08-01] MEDS: FOLIC ACID 1 MG TABLET PO SCH (08:54)
[2019-08-01] MEDS: FUROSEMIDE 20 MG TABLET PO SCH (08:55)
[2019-08-01] MEDS: NITROFURANTOIN MONOHYD/M-CRYST 100 MG CAPSULE. PO SCH (08:55)
[2019-08-01] MEDS: POLYETHYLENE GLYCOL 3350 17 GM PACKET. PO SCH (08:55)
[2019-08-01 08:59] LABS: ALBUMIN 2.4 g/dL (3.4-5.0); ALBUMIN/GLOBULIN RATIO 0.5 (1.0-1.7); CALCIUM 8.8 mg/dL (8.5-10.1); CREATININE 0.8 mg/dL (0.6-1.0); GFR 70.9; POTASSIUM 3.6 mmol/L (3.5-5.1); TOTAL BILIRUBIN 0.4 mg/dL (0.2-1.0)
[2019-08-01] MEDS: BENZTROPINE MESYLATE 0.5 MG TABLET PO SCH ×2 (08:59→20:34)
[2019-08-01] MEDS: MIRABEGRON 25 MG TAB.ER.24H PO SCH (08:59)
[2019-08-01] MEDS: CETIRIZINE HCL 10 MG TABLET PO SCH (08:59)
[2019-08-01] MEDS: CHOLECALCIFEROL (VITAMIN D3) 1,000 UNIT TABLET PO SCH (08:59)
[2019-08-01] MEDS: carBAMazepine 200 MG TABLET PO SCH ×4 (08:59→20:32)
[2019-08-01] MEDS: CALCIUM CARB/VIT D3 500/200 TABLET PO SCH ×3 (08:59→20:32)
[2019-08-01] MEDS: MULTIVITAMIN with MINERAL TABLET. PO SCH (08:59)
[2019-08-01] MEDS: NYSTATIN TOPICAL POWDER 15GM BOTTLE. TP SCH ×2 (09:00→20:32)
[2019-08-01] MEDS: oxyCODONE IR 5 MG TABLET PO PRN (09:59)
--- NOTE | 2019-08-01 10:35 | NUR ---
Pt is compliant with her medication and assessment. Pt is confused, calm, cooperative, and disorganized. No agitation, no aggression, no hallucinations, no delusions. PRN pain medication given.
[2019-08-01 15:35] VITALS: BP 111/64
--- NOTE | 2019-08-01 19:53 | PDOC ---
Exam Note: Edwin Note: Please also refer to the separate dictated note~for this date of service dictated separately.~Patient seen individually. Discussed the patient with Nursing staff reviewed the chart.~Reviewed interim history and current functioning. Reviewed vital signs,~Labs/ Radiology~and current medications noted below. Continue current treatment with the changes noted in the dictated addendum note Assessment: Vital Signs/I&O: Vital Signs Date Time Temp Pulse Resp B/P (MAP) Pulse Ox O2 Delivery O2 Flow Rate FiO2 08/01/19 15:35 97.3 86 16 111/64 (80) 88 07/31/19 05:54 Room Air I & O 07/31/19 07/31/19 08/01/19 15:00 23:00 07:00 Intake Total 360 ml 60 ml Balance 360 ml 60 ml Labs: Laboratory Tests Test 08/01/19 07:56 White Blood Count 9.7 x10^3/uL (4.0-11.0) Red Blood Count 3.72 x10^6/uL (3.50-5.40) Hemoglobin 10.9 g/dL (12.0-15.5) L Hematocrit 33.3 % (36.0-47.0) L Mean Corpuscular Volume 89 fL (79-100) Mean Corpuscular Hemoglobin 29 pg (25-35) Mean Corpuscular Hemoglobin Concent 33 g/dL (31-37) Red Cell Distribution Width 13.7 % (11.5-14.5) Platelet Count 160 x10^3/uL (140-400) Neutrophils (%) (Auto) 72 % (31-73) Lymphocytes (%) (Auto) 11 % (24-48) L Monocytes (%) (Auto) 13 % (0-9) H Eosinophils (%) (Auto) 3 % (0-3) Basophils (%) (Auto) 0 % (0-3) Neutrophils # (Auto) 7.0 x10^3uL (1.8-7.7) Lymphocytes # (Auto) 1.1 x10^3/uL (1.0-4.8) Monocytes # (Auto) 1.3 x10^3/uL (0.0-1.1) H Eosinophils # (Auto) 0.3 x10^3/uL (0.0-0.7) Basophils # (Auto) 0.0 x10^3/uL (0.0-0.2) Sodium Level 146 mmol/L (136-145) H Potassium Level 3.6 mmol/L (3.5-5.1) Chloride Level 108 mmol/L (98-107) H Carbon Dioxide Level 31 mmol/L (21-32) Anion Gap 7 (6-14) Blood Urea Nitrogen 28 mg/dL (7-20) H Creatinine 0.8 mg/dL (0.6-1.0) Estimated GFR (Cockcroft-Gault) 70.9 BUN/Creatinine Ratio 35 (6-20) H Glucose Level 135 mg/dL (70-99) H Calcium Level 8.8 mg/dL (8.5-10.1) Total Bilirubin 0.4 mg/dL (0.2-1.0) Aspartate Amino Transferase (AST) 50 U/L (15-37) H Alanine Aminotransferase (ALT) 28 U/L (14-59) Alkaline Phosphatase 149 U/L (46-116) H Total Protein 7.0 g/dL (6.4-8.2) Albumin 2.4 g/dL (3.4-5.0) L Albumin/Globulin Ratio 0.5 (1.0-1.7) L Current Medications: Meds: Current Medications Medications (Trade) Dose Ordered Sig/Sukhwinder Route PRN Reason Start Time Stop Time Status Last Admin Dose Admin Benztropine Mesylate (Cogentin) 0.5 mg BID PO 08/01/19 09:00 08/01/19 08:59 Quetiapine Fumarate (SEROquel) 150 mg BID@0800,1200 PO 07/31/19 20:30 08/01/19 12:29 I have reviewed the current psychotropics carefully including drug interactions. Risk benefit ratio favors no change other than as noted in my dictated progress note. Diagnosis: Problems: (1) Schizoaffective disorder, bipolar type (2) Dementia, vascular, with depression (3) Dementia, vascular, with delusions (4) Major neurocognitive disorder, due to vascular disease, with behavioral disturbance, mild (5) Anxiety disorder (6) Dementia in Alzheimer's disease with delusions (7) Dementia in Alzheimer's disease with depression (8) Impulse control disorder (9) Intellectual disability LOGAN ARANGO MD Aug 01, 2019 19:53
[2019-08-01] MEDS: MIRTAZAPINE ODT 15 MG TAB.RAPDIS. PO SCH (20:32)
--- NOTE | 2019-08-01 21:08 | PN ---
DATE: 07/30/2019 PSYCHIATRIC PROGRESS NOTE This late entry 07/30/2019 covers the elements not covered in my initial note. SUBJECTIVE: I met with the patient in the evening of 07/30/2019. Per DOMINIK Meraz, the patient slept 4-1/4 hours previous night. She continues to be confused, mumbling, complained of pain in her knee, has a knee immobilizer, status post fracture. REVIEW OF SYSTEMS: Ambulation impaired. No CV, , pulmonary, eye system symptoms on review. Reliability is poor. MENTAL STATUS EXAM: Oriented to herself. Insight, judgment, recent and remote memory, attention, concentration, fund of knowledge poor, consistent with her diagnosis mentioned in my initial note. PLAN: No change from initial note. MAN Og ARANGO MD DR: DAIN/lois JOB#: [id number] / [id number]
--- NOTE | 2019-08-01 21:50 | NUR ---
Nursing note: Assumed care of pt in her room. She was sleeping but arousable. She is complaint with meds crushed and assessment. Pt not interactive as she is very sleepy. No behaviors or s/s or c/o pain.
[2019-08-02 06:01] VITALS: BP 122/69
[2019-08-02] MEDS: LEVOTHYROXINE 137 MCG TABLET PO SCH (06:24)
[2019-08-02] MEDS: busPIRone 5 MG TABLET. PO SCH ×3 (09:23→20:22)
[2019-08-02] MEDS: QUEtiapine 100 MG TABLET. PO SCH ×3 (09:23→17:33)
[2019-08-02] MEDS: APIXABAN 2.5 MG TABLET PO SCH ×2 (09:24→20:23)
[2019-08-02] MEDS: DIVALPROEX 125 MG CAP.SPRINK PO SCH ×3 (09:24→20:22)
[2019-08-02] MEDS: BENZTROPINE MESYLATE 0.5 MG TABLET PO SCH ×2 (09:24→20:23)
[2019-08-02] MEDS: LACTOBACILLUS RHAMNOSUS GG 1 CAPSULE. PO SCH (09:24)
[2019-08-02] MEDS: ASPIRIN 81 MG TAB.CHEW PO SCH (09:24)
[2019-08-02] MEDS: DOCUSATE SODIUM 100 MG CAPSULE PO SCH (09:24)
[2019-08-02] MEDS: FOLIC ACID 1 MG TABLET PO SCH (09:24)
[2019-08-02] MEDS: LACTULOSE 20 GM/30 ML SOLUTION. PO SCH (09:25)
[2019-08-02] MEDS: FUROSEMIDE 20 MG TABLET PO SCH (09:25)
[2019-08-02] MEDS: MIRABEGRON 25 MG TAB.ER.24H PO SCH (09:25)
[2019-08-02] MEDS: POTASSIUM CHLORIDE 10 MEQ TABLET.ER. PO SCH (09:25)
[2019-08-02] MEDS: POLYETHYLENE GLYCOL 3350 17 GM PACKET. PO SCH (09:25)
[2019-08-02] MEDS: NITROFURANTOIN MONOHYD/M-CRYST 100 MG CAPSULE. PO SCH (09:25)
[2019-08-02] MEDS: CALCIUM CARB/VIT D3 500/200 TABLET PO SCH ×3 (09:25→20:23)
[2019-08-02] MEDS: MULTIVITAMIN with MINERAL TABLET. PO SCH (09:26)
[2019-08-02] MEDS: CHOLECALCIFEROL (VITAMIN D3) 1,000 UNIT TABLET PO SCH (09:26)
[2019-08-02] MEDS: NYSTATIN TOPICAL POWDER 15GM BOTTLE. TP SCH ×2 (09:26→20:25)
[2019-08-02] MEDS: oxyCODONE IR 5 MG TABLET PO PRN (09:26)
[2019-08-02] MEDS: carBAMazepine 200 MG TABLET PO SCH ×4 (09:26→20:23)
[2019-08-02] MEDS: CETIRIZINE HCL 10 MG TABLET PO SCH (09:26)
--- NOTE | 2019-08-02 10:17 | NUR ---
Pt is confused, calm, cooperative, and disorganized. Pt is compliant with her medication and assessment. No agitation, no aggression, no hallucinations, no delusions. PRN pain medication given.
--- NOTE | 2019-08-02 15:29 | PN ---
DATE: 08/01/2019 PSYCHIATRIC PROGRESS NOTE This late entry 08/01 covers elements not covered in my initial note. SUBJECTIVE: I met with the patient in the evening. The patient slept 8-3/4 hours previous night. She has been laughing and talking more, visiting with others, less sedated, hugging people who have been visiting on the unit. REVIEW OF SYSTEMS: Ambulation impaired, in wheelchair. No CV, , pulmonary, eye system symptoms on review. Reliability poor. MENTAL STATUS EXAM: Oriented to herself, at times situation. Speech coherent, a little more forthcoming. Abstraction fair. Computation impaired. Language function intact. Attention span short. Mood and affect less withdrawn. LABORATORY DATA: Reviewed. IMPRESSION: Unchanged from initial note. PLAN: No change from initial note. MAN Og ARANGO MD DR: DAIN/lois JOB#: [id number] / [id number]
--- NOTE | 2019-08-02 15:43 | PN ---
DATE: 07/31/2019 This late entry, 07/31/2019, covers the elements not covered in my initial note. SUBJECTIVE: I met with the patient evening of 07/31/2019. The patient slept 5 hours previous night, somewhat sedated during the day and we will reduce the 0800 and noon Seroquel from 200 mg at these times to 150 mg and maintain 100 mg at 1700 for now. REVIEW OF SYSTEMS: Tiredness, impaired ambulation, and in wheelchair. No CV, , pulmonary, eye, or ENT system symptoms on review. Reliability poor. She does complain of right knee pain. MENTAL STATUS EXAM: Oriented to herself. Insight, judgment, and recent memory are impaired. Language function intact. Attention span short. Mood and affect remain somewhat labile and remains paranoid. LABORATORY DATA: Reviewed. IMPRESSION: Schizoaffective disorder, bipolar type, mixed with psychotic features, mild cognitive impairment versus major neurocognitive disorder, Alzheimer, vascular with delusion, depression. Rest unchanged. PLAN: Reduce the Seroquel consequent to sedation and rest unchanged for now including BuSpar, Tegretol, and Depakote. Cogentin is being tapered. Maintain Remeron 7.5 at bedtime and Zyprexa p.r.n. Tegretol level 10.9, therapeutic, and valproic acid level 85, therapeutic. MAN Og ARANGO MD DR: DAIN/lois JOB#: [id number] / [id number]
[2019-08-02 15:50] VITALS: BP 96/57
--- NOTE | 2019-08-02 19:48 | PDOC ---
Exam Note: Edwin Note: Please also refer to the separate dictated note~for this date of service dictated separately.~Patient seen individually. Discussed the patient with Nursing staff reviewed the chart.~Reviewed interim history and current functioning. Reviewed vital signs,~Labs/ Radiology~and current medications noted below. Continue current treatment with the changes noted in the dictated addendum note Assessment: Vital Signs/I&O: Vital Signs Date Time Temp Pulse Resp B/P (MAP) Pulse Ox O2 Delivery O2 Flow Rate FiO2 08/02/19 15:50 97.5 88 16 96/57 (70) 90 08/02/19 06:01 Room Air I & O 08/01/19 08/01/19 08/02/19 14:59 22:59 06:59 Intake Total 540 ml 360 ml Balance 540 ml 360 ml Current Medications: Meds: Current Medications Medications (Trade) Dose Ordered Sig/Sukhwinder Route PRN Reason Start Time Stop Time Status Last Admin Dose Admin Quetiapine Fumarate (SEROquel) 100 mg 0900,1300,1700 PO 08/02/19 17:00 08/02/19 17:33 I have reviewed the current psychotropics carefully including drug interactions. Risk benefit ratio favors no change other than as noted in my dictated progress note. Diagnosis: Problems: (1) Schizoaffective disorder, bipolar type (2) Dementia, vascular, with depression (3) Dementia, vascular, with delusions (4) Major neurocognitive disorder, due to vascular disease, with behavioral disturbance, mild (5) Anxiety disorder (6) Dementia in Alzheimer's disease with delusions (7) Dementia in Alzheimer's disease with depression (8) Impulse control disorder (9) Intellectual disability (10) Dementia LOGAN ARANGO MD Aug 02, 2019 19:47
[2019-08-02] MEDS: MIRTAZAPINE ODT 15 MG TAB.RAPDIS. PO SCH (20:23)
--- NOTE | 2019-08-02 23:23 | NUR ---
Nursing note: Assumed care of pt in her room. She was asleep but easily aroused. She was compliant and pleasant, confused, no c/o or s/s pain. Alert to name only, pt said "I love you". No behaviors
[2019-08-03] MEDS: oxyCODONE IR 5 MG TABLET PO PRN ×4 (00:32→20:35)
[2019-08-03 06:05] VITALS: BP_SYST 137; BP_SYST 152; BP_DIAS 68; BP_DIAS 75
[2019-08-03] MEDS: LEVOTHYROXINE 137 MCG TABLET PO SCH (06:16)
[2019-08-03] MEDS: NYSTATIN TOPICAL POWDER 15GM BOTTLE. TP SCH ×2 (08:39→19:44)
[2019-08-03] MEDS: POLYETHYLENE GLYCOL 3350 17 GM PACKET. PO SCH (08:39)
[2019-08-03] MEDS: MIRABEGRON 25 MG TAB.ER.24H PO SCH (08:40)
[2019-08-03] MEDS: busPIRone 5 MG TABLET. PO SCH ×3 (08:40→19:43)
[2019-08-03] MEDS: LACTOBACILLUS RHAMNOSUS GG 1 CAPSULE. PO SCH (08:40)
[2019-08-03] MEDS: LACTULOSE 20 GM/30 ML SOLUTION. PO SCH (08:40)
[2019-08-03] MEDS: DOCUSATE SODIUM 100 MG CAPSULE PO SCH (08:40)
[2019-08-03] MEDS: QUEtiapine 100 MG TABLET. PO SCH ×3 (08:41→16:10)
[2019-08-03] MEDS: carBAMazepine 200 MG TABLET PO SCH ×4 (08:41→19:42)
[2019-08-03] MEDS: CALCIUM CARB/VIT D3 500/200 TABLET PO SCH ×3 (08:41→19:43)
[2019-08-03] MEDS: BENZTROPINE MESYLATE 0.5 MG TABLET PO SCH (08:41)
[2019-08-03] MEDS: MULTIVITAMIN with MINERAL TABLET. PO SCH (08:41)
[2019-08-03] MEDS: ASPIRIN 81 MG TAB.CHEW PO SCH (08:41)
[2019-08-03] MEDS: CETIRIZINE HCL 10 MG TABLET PO SCH (08:41)
[2019-08-03] MEDS: NITROFURANTOIN MONOHYD/M-CRYST 100 MG CAPSULE. PO SCH (08:41)
[2019-08-03] MEDS: POTASSIUM CHLORIDE 10 MEQ TABLET.ER. PO SCH (08:41)
[2019-08-03] MEDS: APIXABAN 2.5 MG TABLET PO SCH ×2 (08:41→19:42)
[2019-08-03] MEDS: FUROSEMIDE 20 MG TABLET PO SCH (08:41)
[2019-08-03] MEDS: DIVALPROEX 125 MG CAP.SPRINK PO SCH ×3 (08:42→19:43)
[2019-08-03] MEDS: KETOCONAZOLE 2% SHAMPOO 120ML BOTTLE. TP SCH (08:42)
--- NOTE | 2019-08-03 11:25 | NUR ---
WEEKLY ACTIVITY THERAPY NOTE Date of Admission: 07/22/2019 Date of AT Assessment: 07/25/2019 Goal aimed: to increase stimulation and attention span Initial Goal: Pt. will participate in at least five individual Activity Therapy sessions before discharge. Weekly progress towards goal: on track 09/12 (07/26- M2M) Group participation level: zero Weekly highlights: Behaviors observed: in room/sleeping the last few days Plan: no change to goal Beneficial adaptations: potentially gross motor activities
--- NOTE | 2019-08-03 13:28 | NUR ---
FEDERICA spoke to Lluvia, [employer], regarding pt. progress and tentative discharge scheduled for 08/10/2019. FEDERICA left msg. for FEDERICA Caba at [facility], to update her on pt. progress and tentative discharge.
--- NOTE | 2019-08-03 13:34 | NUR ---
WEEKLY NOTE Pt. has been eating 50% of meals and sleeping an average of 6 hours. Pt. has been cooperative with medications and assessments. Pt. does occasionally yell out because of pain. Pt. is oriented to person and birthday. Pt. medications continue to be monitored and adjusted. Pt. is scheduled to discharge back to [facility] the beginning of next week.
--- NOTE | 2019-08-03 15:09 | NUR ---
Pt is confused, calm, cooperative, and disorganized. Pt is compliant with her medication and assessment. Mild agitation at meal times. No aggression, no hallucinations, no delusions. PRN pain medication given this morning. Pt has been up in broda chair this morning and in bed after lunch. Pt requires total assistance with getting up and moderate assistance with eating. [facility].
[2019-08-03 16:00] VITALS: BP 113/65
--- NOTE | 2019-08-03 16:20 | NUR ---
Patient complained of knee pain, received PRN Roxicodone at 1610.
[2019-08-03] MEDS: MIRTAZAPINE ODT 15 MG TAB.RAPDIS. PO SCH (19:42)
--- NOTE | 2019-08-03 19:50 | PDOC ---
Exam Note: Edwin Note: Please also refer to the separate dictated note~for this date of service dictated separately.~Patient seen individually. Discussed the patient with Nursing staff reviewed the chart.~Reviewed interim history and current functioning. Reviewed vital signs,~Labs/ Radiology~and current medications noted below. Continue current treatment with the changes noted in the dictated addendum note Assessment: Vital Signs/I&O: Vital Signs Date Time Temp Pulse Resp B/P (MAP) Pulse Ox O2 Delivery O2 Flow Rate FiO2 08/03/19 17:22 15 94 08/03/19 16:00 97.8 86 113/65 (81) Room Air I & O 08/02/19 08/02/19 08/03/19 15:00 23:00 07:00 Intake Total 660 ml 0 ml Balance 660 ml 0 ml Current Medications: I have reviewed the current psychotropics carefully including drug interactions. Risk benefit ratio favors no change other than as noted in my dictated progress note. Diagnosis: Problems: (1) Schizoaffective disorder, bipolar type (2) Dementia, vascular, with depression (3) Dementia, vascular, with delusions (4) Major neurocognitive disorder, due to vascular disease, with behavioral disturbance, mild (5) Anxiety disorder (6) Dementia in Alzheimer's disease with delusions (7) Dementia in Alzheimer's disease with depression (8) Impulse control disorder (9) Intellectual disability LOGAN ARANGO MD Aug 03, 2019 19:50
--- NOTE | 2019-08-03 23:33 | PN ---
DATE: 08/02/2019 PSYCHIATRIC PROGRESS NOTE This late entry of 08/02 covers elements not covered in my initial note. SUBJECTIVE: I met with the patient in the evening. Per Sara RN, the patient slept 10 hours the previous night. She is less sedated during the day, has some crackles in the lower lobe of her lung; we will defer to Dr. Mcbride. REVIEW OF SYSTEMS: Impaired ambulation in her room. She was lying in bed as I met with her. No CV, , pulmonary, eye, ENT system symptoms on review. MENTAL STATUS EXAMINATION: Oriented to herself. Insight, judgment, recent and remote memory, attention, concentration, fund of knowledge poor; consistent with her diagnosis mentioned in my initial note. IMPRESSION: Schizoaffective disorder, bipolar type, mixed with psychotic features; mild cognitive impairment. PLAN: The patient is currently on a total of 400 mg of Seroquel daily and we will reduce to 300 mg a day; 100 mg at 9:00 a.m., 1:00 p.m., 5:00 p.m. Taper and stop the Cogentin. Continue BuSpar, Tegretol, Depakote, Remeron for now along with Zyprexa p.r.n. Valproic acid level, Tegretol level therapeutic. MAN Og ARANGO MD DR: DAIN/lois JOB#: [id number] / [id number]
--- NOTE | 2019-08-04 01:06 | NUR ---
Last evening pt was in [facility] in day room pleasant and cooperative. Meds taken crushed in pudding. Occasionally she would call out as if in pain. PRN Roxicodone given and has fewer calling out episodes since.
[2019-08-04] MEDS: oxyCODONE IR 5 MG TABLET PO PRN ×4 (02:37→20:42)
[2019-08-04] MEDS: LEVOTHYROXINE 137 MCG TABLET PO SCH (02:37)
[2019-08-04 06:18] VITALS: BP 129/79
[2019-08-04] MEDS: DIVALPROEX 125 MG CAP.SPRINK PO SCH ×3 (08:29→20:40)
[2019-08-04] MEDS: LACTULOSE 20 GM/30 ML SOLUTION. PO SCH (08:30)
[2019-08-04] MEDS: LACTOBACILLUS RHAMNOSUS GG 1 CAPSULE. PO SCH (08:31)
[2019-08-04] MEDS: QUEtiapine 100 MG TABLET. PO SCH ×3 (08:31→16:41)
[2019-08-04] MEDS: MIRABEGRON 25 MG TAB.ER.24H PO SCH (08:31)
[2019-08-04] MEDS: CALCIUM CARB/VIT D3 500/200 TABLET PO SCH ×3 (08:31→20:41)
[2019-08-04] MEDS: NITROFURANTOIN MONOHYD/M-CRYST 100 MG CAPSULE. PO SCH (08:31)
[2019-08-04] MEDS: APIXABAN 2.5 MG TABLET PO SCH ×2 (08:31→20:40)
[2019-08-04] MEDS: DOCUSATE SODIUM 100 MG CAPSULE PO SCH (08:31)
[2019-08-04] MEDS: CETIRIZINE HCL 10 MG TABLET PO SCH (08:31)
[2019-08-04] MEDS: POTASSIUM CHLORIDE 10 MEQ TABLET.ER. PO SCH (08:31)
[2019-08-04] MEDS: carBAMazepine 200 MG TABLET PO SCH ×4 (08:31→20:41)
[2019-08-04] MEDS: MULTIVITAMIN with MINERAL TABLET. PO SCH (08:31)
[2019-08-04] MEDS: ASPIRIN 81 MG TAB.CHEW PO SCH (08:31)
[2019-08-04] MEDS: FUROSEMIDE 20 MG TABLET PO SCH (08:32)
[2019-08-04] MEDS: busPIRone 5 MG TABLET. PO SCH ×3 (08:32→20:40)
[2019-08-04] MEDS: NYSTATIN TOPICAL POWDER 15GM BOTTLE. TP SCH ×2 (08:33→20:40)
[2019-08-04] MEDS: BENZTROPINE MESYLATE 0.5 MG TABLET PO SCH (08:33)
[2019-08-04] MEDS: POLYETHYLENE GLYCOL 3350 17 GM PACKET. PO SCH (08:33)
[2019-08-04 15:38] VITALS: BP 122/75
--- NOTE | 2019-08-04 16:30 | PN ---
DATE: 08/03/2019 PSYCHIATRIC PROGRESS NOTE This late entry 08/03/2019 covers elements not covered in my initial note. SUBJECTIVE: I met with the patient in the evening of 08/03/2019 and staffed at treatment team meeting with the entire team earlier in the day. The patient is sleeping 6 hours average, appetite 50%, less agitated, yelling out at times but less than before, much more awake, alert as we reduced the Seroquel. REVIEW OF SYSTEMS: Ambulation impaired, in wheelchair. No CV, , pulmonary, eye, ENT system symptoms on review. MENTAL STATUS EXAM: Oriented to herself. Insight, judgment, recent and remote memory, attention, concentration, fund of knowledge poor, consistent with her diagnoses. IMPRESSION: Unchanged from initial note. PLAN: Taper and stop the Cogentin. Currently, Seroquel is at 300 mg in 24 hours and after 3 days of this dosage we will reduce it to 250 mg a day. Maintain Remeron along with Zyprexa p.r.n., Tegretol, Depakote, BuSpar unchanged for now. LOGAN ARANGO MD DR: DAIN/lois JOB#: [id number] / [id number]
--- NOTE | 2019-08-04 18:30 | NUR ---
Patient has been disorganized, generally restless, attention seeking, and compliant with medications throughout this shift. She was up at breakfast, where she was disruptive and removed from the dining room. Patient calmed down, and was compliant with morning medications including prn pain medications provided per eMAR. She was again agitated at dinnertime, prn medication again provided per eMAR. Will continue to monitor and report to oncoming shift.
--- NOTE | 2019-08-04 19:49 | PDOC ---
Exam Note: Edwin Note: Please also refer to the separate dictated note~for this date of service dictated separately.~Patient seen individually. Discussed the patient with Nursing staff reviewed the chart.~Reviewed interim history and current functioning. Reviewed vital signs,~Labs/ Radiology~and current medications noted below. Continue current treatment with the changes noted in the dictated addendum note Assessment: Vital Signs/I&O: Vital Signs Date Time Temp Pulse Resp B/P (MAP) Pulse Ox O2 Delivery O2 Flow Rate FiO2 08/04/19 18:15 16 97 Room Air 08/04/19 15:38 97.6 85 122/75 (91) I & O 08/03/19 08/03/19 08/04/19 15:00 23:00 07:00 Intake Total 720 ml 560 ml Balance 720 ml 560 ml Current Medications: Meds: Current Medications Medications (Trade) Dose Ordered Sig/Sukhwinder Route PRN Reason Start Time Stop Time Status Last Admin Dose Admin Benztropine Mesylate (Cogentin) 0.5 mg DAILY PO 08/04/19 09:00 08/06/19 11:00 08/04/19 08:33 I have reviewed the current psychotropics carefully including drug interactions. Risk benefit ratio favors no change other than as noted in my dictated progress note. Diagnosis: Problems: (1) Schizoaffective disorder, bipolar type (2) Dementia, vascular, with depression (3) Dementia, vascular, with delusions (4) Major neurocognitive disorder, due to vascular disease, with behavioral disturbance, mild (5) Anxiety disorder (6) Dementia in Alzheimer's disease with delusions (7) Dementia in Alzheimer's disease with depression (8) Impulse control disorder (9) Intellectual disability LOGAN ARANGO MD Aug 04, 2019 19:49
[2019-08-04] MEDS: MELATONIN 3 MG TABLET PO SCH (20:40)
[2019-08-04] MEDS: MIRTAZAPINE ODT 15 MG TAB.RAPDIS. PO SCH (20:40)
--- NOTE | 2019-08-04 23:07 | NUR ---
Pt up in broda in the day room, repeatedly calling out at change of shift. Restless, difficult to console. Pt given scheduled HS meds crushed in pudding, along with roxicodone per order for pain--compliant. Pt has since calmed. Able to give bed bath and ready for sleep, pt tolerated well. Currently resting comfortably in bed with alarm set for safety.
[2019-08-05] MEDS: oxyCODONE IR 5 MG TABLET PO PRN ×3 (00:47→23:15)
--- NOTE | 2019-08-05 00:56 | NUR ---
Pt awoke, repeatedly calling out, "my leg, my leg!" Pt disrobed, scratching at groin and pulling at right knee immobilizer. Unable to redirect. Pt given PRN roxicodone for pain. Mits placed on bilateral hands for pt safety.
[2019-08-05 05:44] VITALS: BP 127/52
[2019-08-05] MEDS: LEVOTHYROXINE 137 MCG TABLET PO SCH (06:05)
[2019-08-05] MEDS: LACTOBACILLUS RHAMNOSUS GG 1 CAPSULE. PO SCH (08:23)
[2019-08-05] MEDS: LACTULOSE 20 GM/30 ML SOLUTION. PO SCH (08:23)
[2019-08-05] MEDS: DOCUSATE SODIUM 100 MG CAPSULE PO SCH (08:23)
[2019-08-05] MEDS: NITROFURANTOIN MONOHYD/M-CRYST 100 MG CAPSULE. PO SCH (08:23)
[2019-08-05] MEDS: CETIRIZINE HCL 10 MG TABLET PO SCH (08:24)
[2019-08-05] MEDS: carBAMazepine 200 MG TABLET PO SCH ×4 (08:24→19:59)
[2019-08-05] MEDS: DIVALPROEX 125 MG CAP.SPRINK PO SCH ×3 (08:24→20:00)
[2019-08-05] MEDS: POTASSIUM CHLORIDE 10 MEQ TABLET.ER. PO SCH (08:24)
[2019-08-05] MEDS: busPIRone 5 MG TABLET. PO SCH ×3 (08:24→19:57)
[2019-08-05] MEDS: ASPIRIN 81 MG TAB.CHEW PO SCH (08:24)
[2019-08-05] MEDS: APIXABAN 2.5 MG TABLET PO SCH ×2 (08:24→20:00)
[2019-08-05] MEDS: CALCIUM CARB/VIT D3 500/200 TABLET PO SCH ×3 (08:25→20:00)
[2019-08-05] MEDS: FUROSEMIDE 20 MG TABLET PO SCH (08:25)
[2019-08-05] MEDS: POLYETHYLENE GLYCOL 3350 17 GM PACKET. PO SCH (08:25)
[2019-08-05] MEDS: MULTIVITAMIN with MINERAL TABLET. PO SCH (08:25)
[2019-08-05] MEDS: MIRABEGRON 25 MG TAB.ER.24H PO SCH (08:25)
[2019-08-05] MEDS: BENZTROPINE MESYLATE 0.5 MG TABLET PO SCH (08:26)
[2019-08-05] MEDS: QUEtiapine 100 MG TABLET. PO SCH ×2 (08:36→19:58)
[2019-08-05] MEDS: KETOCONAZOLE 2% SHAMPOO 120ML BOTTLE. TP SCH (08:36)
[2019-08-05] MEDS: NYSTATIN TOPICAL POWDER 15GM BOTTLE. TP SCH ×2 (08:37→20:01)
--- NOTE | 2019-08-05 10:27 | PN ---
DATE: 08/05/2019 PSYCHIATRIC PROGRESS NOTE This note covers elements not covered in my initial note 08/05/2019. SUBJECTIVE: I met with the patient in the morning. Per nursing report, the patient slept 5-3/4 hours previous night. She remains confused, repeatedly calling out due to leg pain, scratching at groin, pulling it knee, immobilizer throughout the night. __ were applied for safety. Medication compliant. REVIEW OF SYSTEMS: Ambulation impaired, in Broda chair. No CV, , pulmonary, eye, ENT system symptoms on review. Reliability poor. MENTAL STATUS EXAM: Oriented to herself. Insight, judgment, recent and remote memory, attention, concentration, fund of knowledge poor, consistent with her diagnosis mentioned in my initial note. PLAN: No change from initial note. Depakote, Tegretol levels are therapeutic. Cogentin is being tapered. Maintain the rest unchanged. MAN Og ARANGO MD DR: DAIN/lois JOB#: [id number] / [id number]
--- NOTE | 2019-08-05 10:34 | PN ---
DATE: 08/04/2019 PSYCHIATRIC PROGRESS NOTE This late entry 08/04/2019 covers the elements not covered in my initial note. SUBJECTIVE: I met with the patient in the evening. Per DOMINIK Monroe, the patient slept 4-1/2 hours previous night, still remains confused, anxious. The patient continues to be repetitive in her verbalizations, confused. REVIEW OF SYSTEMS: Ambulation impaired, in Broda chair. No CV, , pulmonary, eye, ENT system symptoms on review. Reliability poor. She does complain of ongoing pain, received oxycodone x 2. MENTAL STATUS EXAM: Oriented to herself. Insight, judgment, recent and remote memory, attention, concentration, fund of knowledge poor, consistent with her diagnosis mentioned in my initial note. PLAN: No change from initial note. We will start melatonin 3 mg p.o. at bedtime for insomnia as well. MAN Og ARANGO MD DR: DAIN/lois JOB#: [id number] / [id number]
[2019-08-05 16:10] VITALS: BP 118/64
--- NOTE | 2019-08-05 16:52 | NUR ---
Pt up in broda for meals and out to day room. was yelling out in afternoon. Pt laid down.
[2019-08-05] MEDS: MELATONIN 3 MG TABLET PO SCH (20:00)
[2019-08-05] MEDS: MIRTAZAPINE ODT 15 MG TAB.RAPDIS. PO SCH (20:00)
--- NOTE | 2019-08-05 20:35 | PDOC ---
Exam Note: Edwin Note: Please also refer to the separate dictated note~for this date of service dictated separately.~Patient seen individually. Discussed the patient with Nursing staff reviewed the chart.~Reviewed interim history and current functioning. Reviewed vital signs,~Labs/ Radiology~and current medications noted below. Continue current treatment with the changes noted in the dictated addendum note Assessment: Vital Signs/I&O: Vital Signs Date Time Temp Pulse Resp B/P (MAP) Pulse Ox O2 Delivery O2 Flow Rate FiO2 08/05/19 16:10 97.1 89 16 118/64 (82) 96 08/05/19 06:06 Room Air I & O 08/04/19 08/04/19 08/05/19 14:59 22:59 06:59 Intake Total 240 ml 480 ml Balance 240 ml 480 ml Current Medications: Meds: Current Medications Medications (Trade) Dose Ordered Sig/Sukhwinder Route PRN Reason Start Time Stop Time Status Last Admin Dose Admin Quetiapine Fumarate (SEROquel) 250 mg BID PO 08/05/19 09:00 08/05/19 19:58 Melatonin (Melatonin) 3 mg HS PO 08/04/19 21:00 08/05/19 20:00 I have reviewed the current psychotropics carefully including drug interactions. Risk benefit ratio favors no change other than as noted in my dictated progress note. Diagnosis: Problems: (1) Schizoaffective disorder, bipolar type (2) Dementia, vascular, with depression (3) Dementia, vascular, with delusions (4) Major neurocognitive disorder, due to vascular disease, with behavioral disturbance, mild (5) Anxiety disorder (6) Dementia in Alzheimer's disease with delusions (7) Dementia in Alzheimer's disease with depression (8) Impulse control disorder (9) Intellectual disability LOGAN ARANGO MD Aug 05, 2019 20:35
--- NOTE | 2019-08-05 23:31 | NUR ---
Nursing Note The patient took her medication crushed in pudding. The patient did not answer assessment questions for this nurse. The patient would not engage in any conversations with this nurse. The patient would yell out seemingly at random and would not answer in any way what the cause of the yelling was. the patient is currently laying awake in bed.
[2019-08-06] MEDS: LEVOTHYROXINE 137 MCG TABLET PO SCH (05:44)
[2019-08-06 06:25] VITALS: BP 115/70
[2019-08-06] MEDS: LACTULOSE 20 GM/30 ML SOLUTION. PO SCH (08:19)
[2019-08-06] MEDS: POLYETHYLENE GLYCOL 3350 17 GM PACKET. PO SCH (08:19)
[2019-08-06] MEDS: QUEtiapine 100 MG TABLET. PO SCH ×2 (08:20→20:04)
[2019-08-06] MEDS: MIRABEGRON 25 MG TAB.ER.24H PO SCH (08:21)
[2019-08-06] MEDS: carBAMazepine 200 MG TABLET PO SCH ×4 (08:21→20:04)
[2019-08-06] MEDS: NITROFURANTOIN MONOHYD/M-CRYST 100 MG CAPSULE. PO SCH (08:21)
[2019-08-06] MEDS: POTASSIUM CHLORIDE 10 MEQ TABLET.ER. PO SCH (08:21)
[2019-08-06] MEDS: DIVALPROEX 125 MG CAP.SPRINK PO SCH ×3 (08:21→20:05)
[2019-08-06] MEDS: ASPIRIN 81 MG TAB.CHEW PO SCH (08:21)
[2019-08-06] MEDS: LACTOBACILLUS RHAMNOSUS GG 1 CAPSULE. PO SCH (08:22)
[2019-08-06] MEDS: busPIRone 5 MG TABLET. PO SCH ×3 (08:22→20:03)
[2019-08-06] MEDS: CETIRIZINE HCL 10 MG TABLET PO SCH (08:22)
[2019-08-06] MEDS: DOCUSATE SODIUM 100 MG CAPSULE PO SCH (08:22)
[2019-08-06] MEDS: CALCIUM CARB/VIT D3 500/200 TABLET PO SCH ×3 (08:24→20:04)
[2019-08-06] MEDS: FUROSEMIDE 20 MG TABLET PO SCH (08:24)
[2019-08-06] MEDS: APIXABAN 2.5 MG TABLET PO SCH ×2 (08:24→20:06)
[2019-08-06] MEDS: BENZTROPINE MESYLATE 0.5 MG TABLET PO SCH (08:25)
[2019-08-06] MEDS: MULTIVITAMIN with MINERAL TABLET. PO SCH (08:25)
[2019-08-06] MEDS: NYSTATIN TOPICAL POWDER 15GM BOTTLE. TP SCH ×2 (09:00→20:07)
[2019-08-06] MEDS: oxyCODONE IR 5 MG TABLET PO PRN (15:16)
[2019-08-06 15:32] VITALS: BP 115/53
--- NOTE | 2019-08-06 18:02 | NUR ---
Patient has been disorganized, generally restless, attention seeking, and compliant with medications throughout this shift. She was pleasant at breakfast, and sat in day room afterwards until about 11:00, when she stayed in bed after being changed. PAtient refused to get up for lunch, and slept until about 13:44 when she took her afternoon medications. Patient did not want to get up at thsi time and remained in bed. She was crying out at bout 15:15, and requested pain meds which were provided per eMAR; patient was changed and transferred to [facility] per her request. Patient has been restless but pleasant throughout. Will continue to monitor and report to oncoming shift.
[2019-08-06] MEDS: MIRTAZAPINE ODT 15 MG TAB.RAPDIS. PO SCH (20:03)
--- NOTE | 2019-08-06 20:03 | PDOC ---
Exam Note: Edwin Note: Please also refer to the separate dictated note~for this date of service dictated separately.~Patient seen individually. Discussed the patient with Nursing staff reviewed the chart.~Reviewed interim history and current functioning. Reviewed vital signs,~Labs/ Radiology~and current medications noted below. Continue current treatment with the changes noted in the dictated addendum note Assessment: Vital Signs/I&O: Vital Signs Date Time Temp Pulse Resp B/P (MAP) Pulse Ox O2 Delivery O2 Flow Rate FiO2 08/06/19 16:22 18 98 Room Air 08/06/19 15:32 97.6 70 115/53 (73) I & O 08/05/19 08/05/19 08/06/19 15:00 23:00 07:00 Intake Total 240 ml 50 ml Balance 240 ml 50 ml Current Medications: I have reviewed the current psychotropics carefully including drug interactions. Risk benefit ratio favors no change other than as noted in my dictated progress note. Diagnosis: Problems: (1) Schizoaffective disorder, bipolar type (2) Dementia, vascular, with depression (3) Dementia, vascular, with delusions (4) Major neurocognitive disorder, due to vascular disease, with behavioral disturbance, mild (5) Anxiety disorder (6) Dementia in Alzheimer's disease with delusions (7) Dementia in Alzheimer's disease with depression (8) Impulse control disorder (9) Intellectual disability LOGAN ARANGO MD Aug 06, 2019 20:03
[2019-08-06] MEDS: MELATONIN 3 MG TABLET PO SCH (20:05)
[2019-08-07] MEDS: ACETAMINOPHEN 325 MG TABLET PO PRN (00:40)
--- NOTE | 2019-08-07 04:04 | NUR ---
Nursing Note The patient took her medication crushed in pudding. The patient did not answer assessment questions for this nurse. The patient received PRN Tylenol @ HS for leg pain. the patient is currently laying awake in bed.
[2019-08-07 05:55] VITALS: BP 116/58
[2019-08-07] MEDS: LEVOTHYROXINE 137 MCG TABLET PO SCH (06:00)
[2019-08-07 07:42] LABS: BASO # 0.1 x10^3/uL (0.0-0.2); BASO % 1 % (0-3); EOS # 0.3 x10^3/uL (0.0-0.7); EOS % 3 % (0-3); HEMATOCRIT 37.2 % (36.0-47.0); LYMPH # 1.7 x10^3/uL (1.0-4.8); LYMPH % 19 % (24-48); MEAN CORPUSCULAR HEMOGLOBIN 29 pg (25-35); MEAN CORPUSCULAR HGB CONC 32 g/dL (31-37); MEAN CORPUSCULAR VOLUME 90 fL (79-100); MONO # 1.2 x10^3/uL (0.0-1.1); MONO % 13 % (0-9); NEUT % 65 % (31-73); PLATELET COUNT 335 x10^3/uL (140-400); RED BLOOD COUNT 4.13 x10^6/uL (3.50-5.40); RED CELL DISTRIBUTION WIDTH 13.8 % (11.5-14.5); WHITE BLOOD COUNT 9.3 x10^3/uL (4.0-11.0)
[2019-08-07 07:51] LABS: ALBUMIN 2.6 g/dL (3.4-5.0); ALBUMIN/GLOBULIN RATIO 0.5 (1.0-1.7); CALCIUM 8.9 mg/dL (8.5-10.1); CREATININE 0.7 mg/dL (0.6-1.0); GFR 82.7; POTASSIUM 3.9 mmol/L (3.5-5.1); TOTAL BILIRUBIN 0.3 mg/dL (0.2-1.0); TOTAL PROTEIN 7.4 g/dL (6.4-8.2)
[2019-08-07] MEDS: NYSTATIN TOPICAL POWDER 15GM BOTTLE. TP SCH (08:21)
[2019-08-07] MEDS: busPIRone 5 MG TABLET. PO SCH ×3 (08:22→19:25)
[2019-08-07] MEDS: ASPIRIN 81 MG TAB.CHEW PO SCH (08:23)
[2019-08-07] MEDS: DOCUSATE SODIUM 100 MG CAPSULE PO SCH (08:23)
[2019-08-07] MEDS: APIXABAN 2.5 MG TABLET PO SCH ×2 (08:23→19:26)
[2019-08-07] MEDS: DIVALPROEX 125 MG CAP.SPRINK PO SCH ×3 (08:23→19:25)
[2019-08-07] MEDS: LACTOBACILLUS RHAMNOSUS GG 1 CAPSULE. PO SCH (08:23)
[2019-08-07] MEDS: POLYETHYLENE GLYCOL 3350 17 GM PACKET. PO SCH (08:24)
[2019-08-07] MEDS: FUROSEMIDE 20 MG TABLET PO SCH (08:24)
[2019-08-07] MEDS: POTASSIUM CHLORIDE 10 MEQ TABLET.ER. PO SCH (08:24)
[2019-08-07] MEDS: NITROFURANTOIN MONOHYD/M-CRYST 100 MG CAPSULE. PO SCH (08:24)
[2019-08-07] MEDS: LACTULOSE 20 GM/30 ML SOLUTION. PO SCH (08:24)
[2019-08-07] MEDS: MIRABEGRON 25 MG TAB.ER.24H PO SCH (08:25)
[2019-08-07] MEDS: QUEtiapine 100 MG TABLET. PO SCH ×2 (08:25→19:26)
[2019-08-07] MEDS: carBAMazepine 200 MG TABLET PO SCH ×4 (08:25→19:25)
[2019-08-07] MEDS: CALCIUM CARB/VIT D3 500/200 TABLET PO SCH ×3 (08:25→19:25)
[2019-08-07] MEDS: CETIRIZINE HCL 10 MG TABLET PO SCH (08:25)
[2019-08-07] MEDS: MULTIVITAMIN with MINERAL TABLET. PO SCH (08:25)
[2019-08-07] MEDS: KETOCONAZOLE 2% SHAMPOO 120ML BOTTLE. TP SCH (09:00)
--- NOTE | 2019-08-07 10:10 | NUR ---
No agitation, no aggression, no hallucinations, no delusions. Pt is confused, calm, cooperative, and disorganized. Pt is compliant with her medication and assessment.
[2019-08-07] MEDS: oxyCODONE IR 5 MG TABLET PO PRN (13:01)
[2019-08-07 15:47] VITALS: BP 111/64
--- NOTE | 2019-08-07 17:02 | NUR ---
Spoke to Dr. Ramirez regarding pts yeast under breast and groin area. He stated she is not a candidate for oral anti fungals as they will cause too many interactions with her psychiatric medications and to get with pharmacy regarding their recommendations. Pharmacy recommends Clotrimazole with betamethazole BID until healed and DC powder. During today when staff applied towels and pillow cases to the area pt would remove them and throw them on the floor. She also continuously itched the area today.
[2019-08-07] MEDS: MIRTAZAPINE ODT 15 MG TAB.RAPDIS. PO SCH (19:25)
[2019-08-07] MEDS: MELATONIN 3 MG TABLET PO SCH (19:25)
[2019-08-07] MEDS: CLOTRIMAZOLE/BETAMETH 1%-0.05% TOPICAL CREAM 15GM TUBE. TP SCH (19:27)
--- NOTE | 2019-08-07 20:46 | NUR ---
Nursing Note The patient was located in the patient room for her medication and assessment. The patient was compliant with her medication and took them crushed in pudding. The patient was more interactive with this nurse during her assessment and was very pleasant. The patient is currently laying in bed awake.
--- NOTE | 2019-08-07 21:50 | PDOC ---
Exam Note: Edwin Note: Please also refer to the separate dictated note~for this date of service dictated separately.~Patient seen individually. Discussed the patient with Nursing staff reviewed the chart.~Reviewed interim history and current functioning. Reviewed vital signs,~Labs/ Radiology~and current medications noted below. Continue current treatment with the changes noted in the dictated addendum note Assessment: Vital Signs/I&O: Vital Signs Date Time Temp Pulse Resp B/P (MAP) Pulse Ox O2 Delivery O2 Flow Rate FiO2 08/07/19 15:47 97.6 74 16 111/64 (80) 94 08/06/19 16:22 Room Air I & O 08/06/19 08/06/19 08/07/19 15:00 23:00 07:00 Intake Total 600 ml 600 ml Balance 600 ml 600 ml Labs: Laboratory Tests Test 08/07/19 07:31 White Blood Count 9.3 x10^3/uL (4.0-11.0) Red Blood Count 4.13 x10^6/uL (3.50-5.40) Hemoglobin 12.0 g/dL (12.0-15.5) Hematocrit 37.2 % (36.0-47.0) Mean Corpuscular Volume 90 fL (79-100) Mean Corpuscular Hemoglobin 29 pg (25-35) Mean Corpuscular Hemoglobin Concent 32 g/dL (31-37) Red Cell Distribution Width 13.8 % (11.5-14.5) Platelet Count 335 x10^3/uL (140-400) Neutrophils (%) (Auto) 65 % (31-73) Lymphocytes (%) (Auto) 19 % (24-48) L Monocytes (%) (Auto) 13 % (0-9) H Eosinophils (%) (Auto) 3 % (0-3) Basophils (%) (Auto) 1 % (0-3) Neutrophils # (Auto) 6.0 x10^3uL (1.8-7.7) Lymphocytes # (Auto) 1.7 x10^3/uL (1.0-4.8) Monocytes # (Auto) 1.2 x10^3/uL (0.0-1.1) H Eosinophils # (Auto) 0.3 x10^3/uL (0.0-0.7) Basophils # (Auto) 0.1 x10^3/uL (0.0-0.2) Sodium Level 145 mmol/L (136-145) Potassium Level 3.9 mmol/L (3.5-5.1) Chloride Level 105 mmol/L (98-107) Carbon Dioxide Level 33 mmol/L (21-32) H Anion Gap 7 (6-14) Blood Urea Nitrogen 26 mg/dL (7-20) H Creatinine 0.7 mg/dL (0.6-1.0) Estimated GFR (Cockcroft-Gault) 82.7 BUN/Creatinine Ratio 37 (6-20) H Glucose Level 95 mg/dL (70-99) Calcium Level 8.9 mg/dL (8.5-10.1) Total Bilirubin 0.3 mg/dL (0.2-1.0) Aspartate Amino Transferase (AST) 13 U/L (15-37) L Alanine Aminotransferase (ALT) 16 U/L (14-59) Alkaline Phosphatase 123 U/L (46-116) H Total Protein 7.4 g/dL (6.4-8.2) Albumin 2.6 g/dL (3.4-5.0) L Albumin/Globulin Ratio 0.5 (1.0-1.7) L Current Medications: Meds: Current Medications Medications (Trade) Dose Ordered Sig/Sukhwinder Route PRN Reason Start Time Stop Time Status Last Admin Dose Admin Betamethasone/ Clotrimazole (Lotrisone) 1 tho BID TP 08/07/19 21:00 08/07/19 19:27 I have reviewed the current psychotropics carefully including drug interactions. Risk benefit ratio favors no change other than as noted in my dictated progress note. Diagnosis: Problems: (1) Schizoaffective disorder, bipolar type (2) Dementia, vascular, with depression (3) Dementia, vascular, with delusions (4) Major neurocognitive disorder, due to vascular disease, with behavioral disturbance, mild (5) Medical clearance for psychiatric admission (6) Dementia (7) Anxiety disorder (8) Dementia in Alzheimer's disease with delusions (9) Dementia in Alzheimer's disease with depression (10) Impulse control disorder (11) Intellectual disability LOGAN ARANGO MD Aug 07, 2019 21:50
[2019-08-08] MEDS: LEVOTHYROXINE 137 MCG TABLET PO SCH (05:40)
[2019-08-08 05:52] VITALS: BP 106/64
[2019-08-08] MEDS: busPIRone 5 MG TABLET. PO SCH ×3 (08:35→19:45)
[2019-08-08] MEDS: CLOTRIMAZOLE/BETAMETH 1%-0.05% TOPICAL CREAM 15GM TUBE. TP SCH ×2 (08:41→19:47)
[2019-08-08] MEDS: ASPIRIN 81 MG TAB.CHEW PO SCH (08:42)
[2019-08-08] MEDS: DOCUSATE SODIUM 100 MG CAPSULE PO SCH (08:42)
[2019-08-08] MEDS: LACTULOSE 20 GM/30 ML SOLUTION. PO SCH (08:43)
[2019-08-08] MEDS: APIXABAN 2.5 MG TABLET PO SCH ×2 (08:43→19:46)
[2019-08-08] MEDS: POTASSIUM CHLORIDE 10 MEQ TABLET.ER. PO SCH (08:43)
[2019-08-08] MEDS: LACTOBACILLUS RHAMNOSUS GG 1 CAPSULE. PO SCH (08:43)
[2019-08-08] MEDS: DIVALPROEX 125 MG CAP.SPRINK PO SCH ×3 (08:43→19:46)
[2019-08-08] MEDS: carBAMazepine 200 MG TABLET PO SCH ×4 (08:44→19:45)
[2019-08-08] MEDS: POLYETHYLENE GLYCOL 3350 17 GM PACKET. PO SCH (08:44)
[2019-08-08] MEDS: CALCIUM CARB/VIT D3 500/200 TABLET PO SCH ×3 (08:44→19:46)
[2019-08-08] MEDS: NITROFURANTOIN MONOHYD/M-CRYST 100 MG CAPSULE. PO SCH (08:44)
[2019-08-08] MEDS: FUROSEMIDE 20 MG TABLET PO SCH (08:44)
[2019-08-08] MEDS: QUEtiapine 100 MG TABLET. PO SCH ×2 (08:44→19:44)
[2019-08-08] MEDS: MIRABEGRON 25 MG TAB.ER.24H PO SCH (08:46)
[2019-08-08] MEDS: CETIRIZINE HCL 10 MG TABLET PO SCH (08:46)
[2019-08-08] MEDS: MULTIVITAMIN with MINERAL TABLET. PO SCH (08:46)
--- NOTE | 2019-08-08 10:25 | NUR ---
Pt is confused, calm, cooperative, and disorganized. No agitation, no aggression, no hallucinations, no delusions. Pt is compliant with her medication and assessment.
[2019-08-08 16:07] VITALS: BP 120/58
[2019-08-08] MEDS: MELATONIN 3 MG TABLET PO SCH (19:45)
[2019-08-08] MEDS: MIRTAZAPINE ODT 15 MG TAB.RAPDIS. PO SCH (19:46)
--- NOTE | 2019-08-08 20:34 | PDOC ---
Exam Note: Edwin Note: Please also refer to the separate dictated note~for this date of service dictated separately.~Patient seen individually. Discussed the patient with Nursing staff reviewed the chart.~Reviewed interim history and current functioning. Reviewed vital signs,~Labs/ Radiology~and current medications noted below. Continue current treatment with the changes noted in the dictated addendum note Assessment: Vital Signs/I&O: Vital Signs Date Time Temp Pulse Resp B/P (MAP) Pulse Ox O2 Delivery O2 Flow Rate FiO2 08/08/19 16:07 98.2 84 18 120/58 (78) 98 08/06/19 16:22 Room Air I & O 08/07/19 08/07/19 08/08/19 14:59 22:59 06:59 Intake Total 720 ml 0 ml Balance 720 ml 0 ml Current Medications: Meds: Current Medications Medications (Trade) Dose Ordered Sig/Sukhwinder Route PRN Reason Start Time Stop Time Status Last Admin Dose Admin Betamethasone/ Clotrimazole (Lotrisone) 1 tho BID TP 08/07/19 21:00 08/08/19 19:47 I have reviewed the current psychotropics carefully including drug interactions. Risk benefit ratio favors no change other than as noted in my dictated progress note. Diagnosis: Problems: (1) Schizoaffective disorder, bipolar type (2) Dementia, vascular, with depression (3) Dementia, vascular, with delusions (4) Major neurocognitive disorder, due to vascular disease, with behavioral disturbance, mild (5) Anxiety disorder (6) Dementia in Alzheimer's disease with delusions (7) Dementia in Alzheimer's disease with depression (8) Impulse control disorder (9) Intellectual disability LOGAN ARANGO MD Aug 08, 2019 20:33
--- NOTE | 2019-08-08 22:00 | PN ---
DATE: 08/06/2019 PSYCHIATRIC PROGRESS NOTE This late entry 08/06/2019 covers elements not covered in my initial note. SUBJECTIVE: I met with the patient individually. The patient slept 5-3/4 hours previous night. She is quite irritable previous night, pleasant, compliant during the day on 08/06/2019. Gets a little irritable at times, but redirectable. REVIEW OF SYSTEMS: Ambulation impaired. No CV, , pulmonary, eye, ENT system symptoms on review. Reliability poor. MENTAL STATUS EXAM: Oriented to herself. Insight, judgment, recent and remote memory, attention, concentration, fund of knowledge poor, consistent with her diagnosis mentioned in my initial note. PLAN: No change from initial note. MAN Og ARANGO MD DR: DAIN/lois JOB#: [id number] / [id number]
--- NOTE | 2019-08-08 22:23 | PN ---
DATE: 08/07/2019 PSYCHIATRIC PROGRESS NOTE. This late entry of 08/07/2019 covers the elements not covered in my initial note. SUBJECTIVE: I met with the patient individually. The patient slept 6-1/2 hours previous night. She remains confused, somewhat anxious, labile. REVIEW OF SYSTEMS: Ambulation impaired, in Broda chair. No CV, , pulmonary, eye, ENT system symptoms on review. Reliability poor. MENTAL STATUS EXAM: Oriented to herself. Insight, judgment, recent and remote memory, attention, concentration, fund of knowledge poor, consistent with her diagnosis mentioned in my initial note. PLAN: No change from initial note. MAN Og ARANGO MD DR: DAIN/lois JOB#: [id number] / [id number]
--- NOTE | 2019-08-08 22:42 | NUR ---
Nursing Note Pt takes meds crushed, attempting to take off her brace and brief intermittently. Difficult to redirect doesn't follow commands. Compliant with meds and assessment.
[2019-08-09] MEDS: oxyCODONE IR 5 MG TABLET PO PRN ×2 (00:08→20:34)
[2019-08-09] MEDS: LEVOTHYROXINE 137 MCG TABLET PO SCH (05:27)
[2019-08-09 06:09] VITALS: BP 107/58
[2019-08-09] MEDS: LACTULOSE 20 GM/30 ML SOLUTION. PO SCH (08:15)
[2019-08-09] MEDS: DOCUSATE SODIUM 100 MG CAPSULE PO SCH (08:15)
[2019-08-09] MEDS: ASPIRIN 81 MG TAB.CHEW PO SCH (08:15)
[2019-08-09] MEDS: POLYETHYLENE GLYCOL 3350 17 GM PACKET. PO SCH (08:15)
[2019-08-09] MEDS: MULTIVITAMIN with MINERAL TABLET. PO SCH (08:15)
[2019-08-09] MEDS: POTASSIUM CHLORIDE 10 MEQ TABLET.ER. PO SCH (08:16)
[2019-08-09] MEDS: QUEtiapine 100 MG TABLET. PO SCH ×2 (08:16→20:31)
[2019-08-09] MEDS: CALCIUM CARB/VIT D3 500/200 TABLET PO SCH ×3 (08:16→20:30)
[2019-08-09] MEDS: carBAMazepine 200 MG TABLET PO SCH ×4 (08:16→20:31)
[2019-08-09] MEDS: MIRABEGRON 25 MG TAB.ER.24H PO SCH (08:16)
[2019-08-09] MEDS: DIVALPROEX 125 MG CAP.SPRINK PO SCH ×3 (08:16→20:30)
[2019-08-09] MEDS: busPIRone 5 MG TABLET. PO SCH ×3 (08:17→20:31)
[2019-08-09] MEDS: LACTOBACILLUS RHAMNOSUS GG 1 CAPSULE. PO SCH (08:17)
[2019-08-09] MEDS: FUROSEMIDE 20 MG TABLET PO SCH (08:17)
[2019-08-09] MEDS: NITROFURANTOIN MONOHYD/M-CRYST 100 MG CAPSULE. PO SCH (08:18)
[2019-08-09] MEDS: CETIRIZINE HCL 10 MG TABLET PO SCH (08:18)
[2019-08-09] MEDS: APIXABAN 2.5 MG TABLET PO SCH ×2 (08:18→20:31)
[2019-08-09] MEDS: CLOTRIMAZOLE/BETAMETH 1%-0.05% TOPICAL CREAM 15GM TUBE. TP SCH ×2 (09:00→21:00)
--- NOTE | 2019-08-09 11:56 | NUR ---
SW left msg. for FEDERICA Caba at [facility], to discuss pt. progress and discharge for mid to later this week.
[2019-08-09 16:04] VITALS: BP 107/63
--- NOTE | 2019-08-09 18:30 | NUR ---
Patient has been disorganized, generally restless, attention seeking, and compliant with medications throughout this shift. She was pleasant at breakfast, and sat in day room afterwards until before lunch when she was changed. Patient was up for lunch, then back in bed afterwards, afternoon meds held while she was asleep. Patient refused to get up for dinner, she was compliant with evening meds. Patient has been restless but pleasant throughout. Will continue to monitor and report to oncoming shift.
[2019-08-09] MEDS: MIRTAZAPINE ODT 15 MG TAB.RAPDIS. PO SCH (20:30)
[2019-08-09] MEDS: MELATONIN 3 MG TABLET PO SCH (20:31)
--- NOTE | 2019-08-09 20:51 | PDOC ---
Exam Note: Edwin Note: Please also refer to the separate dictated note~for this date of service dictated separately.~Patient seen individually. Discussed the patient with Nursing staff reviewed the chart.~Reviewed interim history and current functioning. Reviewed vital signs,~Labs/ Radiology~and current medications noted below. Continue current treatment with the changes noted in the dictated addendum note Assessment: Vital Signs/I&O: Vital Signs Date Time Temp Pulse Resp B/P (MAP) Pulse Ox O2 Delivery O2 Flow Rate FiO2 08/09/19 20:34 95 08/09/19 16:04 98.5 65 18 107/63 (78) 08/06/19 16:22 Room Air I & O 08/08/19 08/08/19 08/09/19 15:00 23:00 07:00 Intake Total 480 ml 320 ml Balance 480 ml 320 ml Current Medications: Meds: Current Medications Medications (Trade) Dose Ordered Sig/Sukhwinder Route PRN Reason Start Time Stop Time Status Last Admin Dose Admin Mirtazapine (Remeron Dania-Tab) 15 mg QHS PO 08/09/19 21:00 08/09/19 20:30 I have reviewed the current psychotropics carefully including drug interactions. Risk benefit ratio favors no change other than as noted in my dictated progress note. Diagnosis: Problems: (1) Schizoaffective disorder, bipolar type (2) Dementia, vascular, with depression (3) Dementia, vascular, with delusions (4) Major neurocognitive disorder, due to vascular disease, with behavioral disturbance, mild (5) Medical clearance for psychiatric admission (6) Anxiety disorder (7) Dementia in Alzheimer's disease with delusions (8) Dementia in Alzheimer's disease with depression (9) Impulse control disorder (10) Intellectual disability LOGAN ARANGO MD Aug 09, 2019 20:51
--- NOTE | 2019-08-09 22:22 | PN ---
DATE: 08/08/2019 PSYCHIATRIC PROGRESS NOTE This late entry 08/08/2019 covers elements not covered in my initial note. SUBJECTIVE: I met with the patient in the evening. Overall, the patient remains somewhat confused, anxious, but less labile. REVIEW OF SYSTEMS: Ambulation impaired, in Broda chair. No CV, , pulmonary, eye, ENT system symptoms on review. Reliability poor. MENTAL STATUS EXAM: Oriented to herself. Insight, judgment, recent and remote memory, attention, concentration, fund of knowledge poor, consistent with her diagnosis mentioned in my initial note. PLAN: No change from initial note. MAN Og ARANGO MD DR: DAIN/lois JOB#: [id number] / [id number]
[2019-08-10 05:42] VITALS: BP 117/57
[2019-08-10] MEDS: LEVOTHYROXINE 137 MCG TABLET PO SCH (06:13)
[2019-08-10] MEDS: LACTULOSE 20 GM/30 ML SOLUTION. PO SCH (08:04)
[2019-08-10] MEDS: QUEtiapine 100 MG TABLET. PO SCH ×2 (08:05→20:38)
[2019-08-10] MEDS: DIVALPROEX 125 MG CAP.SPRINK PO SCH ×3 (08:05→20:36)
[2019-08-10] MEDS: busPIRone 5 MG TABLET. PO SCH ×3 (08:05→20:36)
[2019-08-10] MEDS: POTASSIUM CHLORIDE 10 MEQ TABLET.ER. PO SCH (08:06)
[2019-08-10] MEDS: DOCUSATE SODIUM 100 MG CAPSULE PO SCH (08:06)
[2019-08-10] MEDS: FUROSEMIDE 20 MG TABLET PO SCH (08:06)
[2019-08-10] MEDS: POLYETHYLENE GLYCOL 3350 17 GM PACKET. PO SCH (08:07)
[2019-08-10] MEDS: APIXABAN 2.5 MG TABLET PO SCH ×2 (08:07→20:37)
[2019-08-10] MEDS: ASPIRIN 81 MG TAB.CHEW PO SCH (08:07)
[2019-08-10] MEDS: LACTOBACILLUS RHAMNOSUS GG 1 CAPSULE. PO SCH (08:07)
[2019-08-10] MEDS: CETIRIZINE HCL 10 MG TABLET PO SCH (08:07)
[2019-08-10] MEDS: NITROFURANTOIN MONOHYD/M-CRYST 100 MG CAPSULE. PO SCH (08:07)
[2019-08-10] MEDS: MULTIVITAMIN with MINERAL TABLET. PO SCH (08:07)
[2019-08-10] MEDS: MIRABEGRON 25 MG TAB.ER.24H PO SCH (08:07)
[2019-08-10] MEDS: carBAMazepine 200 MG TABLET PO SCH ×4 (08:07→20:37)
[2019-08-10] MEDS: CALCIUM CARB/VIT D3 500/200 TABLET PO SCH ×3 (08:07→20:37)
[2019-08-10] MEDS: KETOCONAZOLE 2% SHAMPOO 120ML BOTTLE. TP SCH (09:00)
[2019-08-10] MEDS: oxyCODONE IR 5 MG TABLET PO PRN (09:15)
[2019-08-10] MEDS: CLOTRIMAZOLE/BETAMETH 1%-0.05% TOPICAL CREAM 15GM TUBE. TP SCH ×2 (09:15→20:38)
[2019-08-10 15:45] VITALS: BP 112/66
--- NOTE | 2019-08-10 16:53 | NUR ---
Patient has been disorganized, generally restless, and compliant with medications throughout this shift. She was pleasant at breakfast, and sat in day room most of the shift, occasionally napping in her Broda. Will continue to monitor and report to oncoming shift.
--- NOTE | 2019-08-10 20:34 | PDOC ---
Exam Note: Edwin Note: Please also refer to the separate dictated note~for this date of service dictated separately.~Patient seen individually. Discussed the patient with Nursing staff reviewed the chart.~Reviewed interim history and current functioning. Reviewed vital signs,~Labs/ Radiology~and current medications noted below. Continue current treatment with the changes noted in the dictated addendum note Assessment: Vital Signs/I&O: Vital Signs Date Time Temp Pulse Resp B/P (MAP) Pulse Ox O2 Delivery O2 Flow Rate FiO2 08/10/19 15:45 97.9 87 16 112/66 (81) 96 08/10/19 10:30 Room Air I & O 08/09/19 08/09/19 08/10/19 15:00 23:00 07:00 Intake Total 960 ml 240 ml Balance 960 ml 240 ml Current Medications: Meds: Current Medications Medications (Trade) Dose Ordered Sig/Sukhwinder Route PRN Reason Start Time Stop Time Status Last Admin Dose Admin Mirtazapine (Remeron Dania-Tab) 15 mg QHS PO 08/09/19 21:00 08/09/19 20:30 I have reviewed the current psychotropics carefully including drug interactions. Risk benefit ratio favors no change other than as noted in my dictated progress note. Diagnosis: Problems: (1) Schizoaffective disorder, bipolar type (2) Dementia, vascular, with depression (3) Dementia, vascular, with delusions (4) Major neurocognitive disorder, due to vascular disease, with behavioral disturbance, mild (5) Anxiety disorder (6) Dementia in Alzheimer's disease with delusions (7) Dementia in Alzheimer's disease with depression (8) Impulse control disorder (9) Intellectual disability LOGAN ARANGO MD Aug 10, 2019 20:34
[2019-08-10] MEDS: MIRTAZAPINE ODT 15 MG TAB.RAPDIS. PO SCH (20:37)
[2019-08-10] MEDS: MELATONIN 3 MG TABLET PO SCH (20:37)
--- NOTE | 2019-08-10 20:56 | PN ---
DATE: 08/09/2019 PSYCHIATRIC PROGRESS NOTE. This late entry of 08/09/2019 covers the elements not covered in my initial note. SUBJECTIVE: I met with the patient in the evening of 08/09/2019. Per DOMINIK Monroe, the patient slept 4-3/4 hours previous night. She is intermittently combative at times and some of this could be due to pain. REVIEW OF SYSTEMS: Ambulation impaired, in Broda chair. No CV, , pulmonary, eye, ENT system symptoms on review. Reliability poor. MENTAL STATUS EXAM: Oriented to herself. Insight, judgment, recent and remote memory, attention, concentration, fund of knowledge poor, consistent with her diagnosis mentioned in my initial note. PLAN: Increase Remeron from 7.5 mg at bedtime to 15 mg p.o. at bedtime for insomnia. Continue rest unchanged for now including Tegretol, BuSpar, Depakote, Seroquel along with Zyprexa p.r.n. Cogentin is being tapered. LOGAN ARANGO MD DR: DAIN/lois JOB#: [id number] / [id number]
--- NOTE | 2019-08-10 23:32 | NUR ---
Pt has been laying in bed all evening, yelling out intermittently. Compliant with crushed medications. Pt restless and disrobing in bed.
[2019-08-11] MEDS ORDERED: CLOT15CR3 TP (00:45)
[2019-08-11] MEDS ORDERED: METH28OI2 TP (00:46)
[2019-08-11] MEDS ORDERED: MELA3TAB56 PO (00:46)
[2019-08-11] MEDS ORDERED: MIRT15TA PO (01:26)
[2019-08-11] MEDS ORDERED: MULT1TAB52 PO (01:27)
[2019-08-11] MEDS ORDERED: OLAN5TAB5 PO (01:28)
[2019-08-11] MEDS ORDERED: OXYC5TAB4 PO (01:29)
[2019-08-11] MEDS: LEVOTHYROXINE 137 MCG TABLET PO SCH (05:41)
[2019-08-11 05:58] VITALS: BP 133/74
[2019-08-11 07:07] LABS: BASO % 0 % (0-3); EOS # 0.1 x10^3/uL (0.0-0.7); EOS % 2 % (0-3); HEMATOCRIT 37.5 % (36.0-47.0); HEMOGLOBIN 12.2 g/dL (12.0-15.5); LYMPH # 1.5 x10^3/uL (1.0-4.8); LYMPH % 20 % (24-48); MEAN CORPUSCULAR HEMOGLOBIN 29 pg (25-35); MEAN CORPUSCULAR HGB CONC 33 g/dL (31-37); MEAN CORPUSCULAR VOLUME 90 fL (79-100); MONO % 13 % (0-9); NEUT # 4.9 x10^3uL (1.8-7.7); NEUT % 66 % (31-73); PLATELET COUNT 307 x10^3/uL (140-400); RED BLOOD COUNT 4.16 x10^6/uL (3.50-5.40); WHITE BLOOD COUNT 7.5 x10^3/uL (4.0-11.0)
[2019-08-11 07:24] LABS: ALBUMIN 2.5 g/dL (3.4-5.0); ALBUMIN/GLOBULIN RATIO 0.5 (1.0-1.7); CALCIUM 8.5 mg/dL (8.5-10.1); CREATININE 0.7 mg/dL (0.6-1.0); GFR 82.7; POTASSIUM 3.7 mmol/L (3.5-5.1); TOTAL BILIRUBIN 0.3 mg/dL (0.2-1.0); TOTAL PROTEIN 7.2 g/dL (6.4-8.2)
[2019-08-11] MEDS: QUEtiapine 100 MG TABLET. PO SCH ×2 (07:27→20:14)
[2019-08-11] MEDS: DOCUSATE SODIUM 100 MG CAPSULE PO SCH (07:27)
[2019-08-11] MEDS: POTASSIUM CHLORIDE 10 MEQ TABLET.ER. PO SCH (07:28)
[2019-08-11] MEDS: POLYETHYLENE GLYCOL 3350 17 GM PACKET. PO SCH (07:28)
[2019-08-11] MEDS: DIVALPROEX 125 MG CAP.SPRINK PO SCH ×3 (07:28→20:14)
[2019-08-11] MEDS: LACTULOSE 20 GM/30 ML SOLUTION. PO SCH (07:29)
[2019-08-11] MEDS: LACTOBACILLUS RHAMNOSUS GG 1 CAPSULE. PO SCH (07:29)
[2019-08-11] MEDS: MIRABEGRON 25 MG TAB.ER.24H PO SCH (07:29)
[2019-08-11] MEDS: FUROSEMIDE 20 MG TABLET PO SCH (07:29)
[2019-08-11] MEDS: carBAMazepine 200 MG TABLET PO SCH ×4 (07:30→20:14)
[2019-08-11] MEDS: ASPIRIN 81 MG TAB.CHEW PO SCH (07:30)
[2019-08-11] MEDS: CALCIUM CARB/VIT D3 500/200 TABLET PO SCH ×3 (07:30→20:13)
[2019-08-11] MEDS: APIXABAN 2.5 MG TABLET PO SCH ×2 (07:30→20:14)
[2019-08-11] MEDS: MULTIVITAMIN with MINERAL TABLET. PO SCH (07:30)
[2019-08-11] MEDS: busPIRone 5 MG TABLET. PO SCH ×3 (07:30→20:13)
[2019-08-11] MEDS: NITROFURANTOIN MONOHYD/M-CRYST 100 MG CAPSULE. PO SCH (07:30)
[2019-08-11] MEDS: CETIRIZINE HCL 10 MG TABLET PO SCH (07:30)
[2019-08-11] MEDS: CLOTRIMAZOLE/BETAMETH 1%-0.05% TOPICAL CREAM 15GM TUBE. TP SCH ×2 (07:31→20:16)
[2019-08-11] MEDS: oxyCODONE IR 5 MG TABLET PO PRN (08:05)
--- NOTE | 2019-08-11 10:01 | NUR ---
FEDERICA spoke to Gertrudis, Brass Cutter at [facility], regarding pt. sitting in a broda chair for comfort. FEDERICA spoke to Dale, [place] [facility] [employer] [employer], regarding pt. discharge schedule for 08/12/2019. FEDERICA will contact the Public Administrators office if anything changes with discharge.
--- NOTE | 2019-08-11 12:26 | NUR ---
[facility] Social Work Discharge Planning Form Patient Name STELLA LAST Admit Date: 07/22/2019 DISCHARGE PLAN Discharge Destination: [facility] Care Assessment: NA Level II Assessment: NA Transportation: [facility] to transport pt. on 08/12/2019 at 11:00 a.m. Special Instructions/Notes: Please fax discharge paperwork and medication list to [phone]. DISCHARGE TO FACILITY Facility: [facility] Address: [address] [place] [address] Contact Name: FEDERICA Caba PCP: Dr. Perez Psychiatrist: [facility] (Counseling)
--- NOTE | 2019-08-11 12:34 | NUR ---
FEDERICA faxed updated pt. paperwork to Gertrudis Nurse Intern at [facility] in preparation for pt. discharge scheduled for 08/12/2019.
[2019-08-11] MEDS ORDERED: MIRT15TA90 PO (12:42)
[2019-08-11 15:40] VITALS: BP 107/65
--- NOTE | 2019-08-11 18:19 | NUR ---
Patient has been disorganized, pleasant, generally restless, and compliant with medications throughout this shift. She was up all morning and most of the afternoon, laying down just before dinner. patient did not want to get up for dinner. Will continue to monitor and report to oncoming shift.
[2019-08-11] MEDS: MELATONIN 3 MG TABLET PO SCH (20:13)
[2019-08-11] MEDS: MIRTAZAPINE ODT 15 MG TAB.RAPDIS. PO SCH (20:14)
--- NOTE | 2019-08-11 21:59 | DS ---
DATE OF DISCHARGE: 08/11/2019 FINAL DIAGNOSES: AXIS I: 1. Schizoaffective disorder, bipolar type, mixed with psychotic features. 2. Major neurocognitive disorder, Alzheimer's, vascular with delusions and behavioral disturbances. 3. Generalized anxiety disorder. 4. Impulse control disorder, unspecified. AXIS II: None. AXIS III: Gastroesophageal reflux disease, hypothyroidism, osteoporosis status post cerebrovascular accident, seizure disorder, dysphagia, impulse control disorder, chronic constipation, history of C. diff. REASON FOR ADMISSION: This 69-year-old female was admitted to inpatient program at senior behavioral unit at [facility] from [facility] in [place], [place], referred by the primary care physician because of increased agitation, screaming, being combative towards staff and residents, disrobing and exposing her breasts. The patient also carries a diagnosis of schizoaffective disorder, bipolar type and also intellectual disability. The patient also being combative towards peers and has to be kept on 1:1 status. The patient was difficult to redirect and also refusing to take her medications. The patient apparently failed outpatient treatment. HISTORY OF PRESENT ILLNESS: The patient has history of behavior problems and she has been a resident there for quite some time, but recently her symptoms have exacerbated to the point they are no longer able to contain her. The patient was not sleeping, not eating and also she increasingly became psychotic and increased agitation and behavioral problems. HOSPITAL COURSE: The patient had a physical exam, lab work and also seen by the primary care on a regular basis. The patient's lab revealed no major abnormalities except for elevated BUN with 27. The patient's liver enzymes, however, were not elevated. The patient's Depakote level was 85. Her Tegretol level was 10.9. The patient was involved in the program including individual therapy, group therapy, activity therapy. The patient is constantly complaining about pain. The patient also had some speech impediment, had difficulty with communication. The patient is able to follow directions. The patient apparently also had problems with pain. The patient had an x-ray of knee, right, which showed comminuted horizontal fracture of the proximal tibial metadiaphysis with extension through lateral tibia plateau and also displaced fibular neck fracture and also hardware identified transfixing the distal femur and also there was a moderate to large sized knee joint effusion. The patient was on the following medications during the stay here including vitamin D 50,000 units; mirtazapine 15 mg at night; Seroquel 250 mg b.i.d.; melatonin 3 mg at night; oxycodone 10 mg q. 4 hours p.r.n.; olanzapine 2.5 mg q. 2 hours p.r.n. The patient was also on multivitamins, cetirizine, lactulose, potassium chloride, nitrofurantoin, lactobacillus, Lasix, aspirin, and levothyroxine. The patient was also on Depakote 500 mg t.i.d., buspirone 7.5 mg t.i.d., Eliquis 2.5 mg b.i.d., Tegretol 200 mg q.i.d. AFTERCARE PLAN: The patient at the time of discharge was medically stable. The patient was not expressing any other problems except for pain, mostly right knee pain. The patient is still having difficulty with her speech. The patient will continue on her current medications and she will be returned to [facility] and to be followed up by the psychiatrist. JIMMY GUZMAN MD DR: POOL/lois JOB#: [id number] / [id number]
--- NOTE | 2019-08-11 22:04 | PN ---
DATE: 08/10/2019 PSYCHIATRIC PROGRESS NOTE This late entry 08/10/2019 covers elements not covered in my initial note. SUBJECTIVE: I met with the patient evening of 08/10/2019. Per DOMINIK Monroe, the patient slept 4-1/4 hours previous night. She is doing better today, still resistive to medications in the evening. Took medications, later with water. REVIEW OF SYSTEMS: Ambulation impaired. No CV, , pulmonary, eye system symptoms on review. Reliability poor. MENTAL STATUS EXAM: Oriented to herself. Insight, judgment, recent and remote memory, attention, concentration, fund of knowledge poor, consistent with her diagnosis mentioned in my initial note. PLAN: No change from initial note. Dr. Fontenot will cover for me over the next few days. MAN Og ARANGO MD DR: DAIN/lois JOB#: [id number] / [id number]
--- NOTE | 2019-08-11 23:19 | NUR ---
Pt has been laying in bed all evening. Compliant with crushed medications. Yelling out intermittently.
[2019-08-12] MEDS: oxyCODONE IR 5 MG TABLET PO PRN (01:06)
[2019-08-12] MEDS: LEVOTHYROXINE 137 MCG TABLET PO SCH (05:18)
[2019-08-12 06:02] VITALS: BP 127/67
[2019-08-12] MEDS: POLYETHYLENE GLYCOL 3350 17 GM PACKET. PO SCH (08:13)
[2019-08-12] MEDS: MIRABEGRON 25 MG TAB.ER.24H PO SCH (08:13)
[2019-08-12] MEDS: FUROSEMIDE 20 MG TABLET PO SCH (08:13)
[2019-08-12] MEDS: LACTOBACILLUS RHAMNOSUS GG 1 CAPSULE. PO SCH (08:14)
[2019-08-12] MEDS: CETIRIZINE HCL 10 MG TABLET PO SCH (08:14)
[2019-08-12] MEDS: ASPIRIN 81 MG TAB.CHEW PO SCH (08:15)
[2019-08-12] MEDS: CALCIUM CARB/VIT D3 500/200 TABLET PO SCH (08:15)
[2019-08-12] MEDS: MULTIVITAMIN with MINERAL TABLET. PO SCH (08:15)
[2019-08-12] MEDS: carBAMazepine 200 MG TABLET PO SCH (08:16)
[2019-08-12] MEDS: NITROFURANTOIN MONOHYD/M-CRYST 100 MG CAPSULE. PO SCH (08:16)
[2019-08-12] MEDS: APIXABAN 2.5 MG TABLET PO SCH (08:16)
[2019-08-12] MEDS: DIVALPROEX 125 MG CAP.SPRINK PO SCH (08:16)
[2019-08-12] MEDS: POTASSIUM CHLORIDE 10 MEQ TABLET.ER. PO SCH (08:16)
[2019-08-12] MEDS: QUEtiapine 100 MG TABLET. PO SCH (08:16)
[2019-08-12] MEDS: LACTULOSE 20 GM/30 ML SOLUTION. PO SCH (08:17)
[2019-08-12] MEDS: busPIRone 5 MG TABLET. PO SCH (08:17)
[2019-08-12] MEDS: DOCUSATE SODIUM 100 MG CAPSULE PO SCH (08:18)
[2019-08-12] MEDS: KETOCONAZOLE 2% SHAMPOO 120ML BOTTLE. TP SCH (08:19)
[2019-08-12] MEDS: CLOTRIMAZOLE/BETAMETH 1%-0.05% TOPICAL CREAM 15GM TUBE. TP SCH (08:19)
--- NOTE | 2019-08-12 10:15 | NUR ---
Transition Record was faxed to follow-up provider with the following elements: Reason for admission, procedures, tests, principal diagnosis, pending studies, patient instructions, 31/03 contact information for unit, phone number to obtain pending test results, plan for follow-up care, physician follow-up, advanced directive information, and medication list with dose, duration and instructions. This information was included in the following documents: History and physical, lab results, study results, progress notes, social work planning form, DC instruction form, patient visit summary, and medication reconciliation form. Date & time record faxed: 08/12/19 0014 Record faxed to: [facility] [phone] Record discussed with/ report given to: DOMINIK De La Vega
[2019-08-17] MEDS ORDERED: CHOLECALCIFEROL (VITAMIN D3) 50,000 UNIT CAPSULE PO SCH (09:00)
== END 2019-08-12 10:15 | DRG 885 ==
LOC: ER 12:00 → GEROPSY 15:11
PROVIDERS: ADMIT Psychiatry & Neurology Psychiatry; ATTEND Psychiatry & Neurology Psychiatry
DX: F25.0 Schizoaffective disorder, bipolar type (principal); S82.121A Displaced fracture of lateral condyle of right tibia, initial encounter for closed fracture; E43 Unspecified severe protein-calorie malnutrition; F01.51 Vascular dementia, unspecified severity, with behavioral disturbance; F02.81 Dementia in other diseases classified elsewhere, unspecified severity, with behavioral disturbance; F31.60 Bipolar disorder, current episode mixed, unspecified; F79 Unspecified intellectual disabilities; F63.9 Impulse disorder, unspecified; I50.9 Heart failure, unspecified; G30.9 Alzheimer's disease, unspecified; E03.9 Hypothyroidism, unspecified; F41.1 Generalized anxiety disorder; F60.3 Borderline personality disorder; G40.909 Epilepsy, unspecified, not intractable, without status epilepticus; I11.0 Hypertensive heart disease with heart failure; K21.9 Gastro-esophageal reflux disease without esophagitis; K59.00 Constipation, unspecified; M81.0 Age-related osteoporosis without current pathological fracture; S82.401A Unspecified fracture of shaft of right fibula, initial encounter for closed fracture; R13.10 Dysphagia, unspecified; Z02.89 Encounter for other administrative examinations; Z79.01 Long term (current) use of anticoagulants; Z79.899 Other long term (current) drug therapy; Z86.19 Personal history of other infectious and parasitic diseases; Z86.73 Personal history of transient ischemic attack (TIA), and cerebral infarction without residual deficits; Z88.8 Allergy status to other drugs, medicaments and biological substances; Z91.018 Allergy to other foods; Z68.25 Body mass index [BMI] 25.0-25.9, adult
CPT/HCPCS: 36415; 70450; 71045; 73562; 80053; 80061; 80156; 80164; 81001; 82140; 82306; 82607; 83036; 83540; 83550; 83735; 84436; 84443; 84480; 85025; 85610; 85730; 86592; 87086; 93005; 99285-25